=== PATIENT | male | born 1955 | race Caucasian/White ===

== ENCOUNTER 2017-11-04 11:47 | Emergency (ER) | payer OTHER ==
[2017-11-04] MEDS ORDERED: KETOROLAC 30 MG/1 ML SDV IVP ONE (12:07)
[2017-11-04] MEDS ORDERED: METOCLOPRAMIDE 10 MG/2 ML VIAL IVP ONE (12:07)
--- NOTE | 2017-11-04 12:09 | EDPHY ---
H & P Stated Complaint: migraine for 4 days Time Seen by Provider: 11/04/17 11:59 HPI/ROS: CHIEF COMPLAINT: "Cluster headache for 4 days " HISTORY OF PRESENT ILLNESS: 62-year-old male history of cluster headaches, last headache was approximately 15 years ago, complaining of 2 weeks of URI symptoms have become progressively better our 4 days ago started to develop a non thunderclap, progressively worsening right-sided headache with associated nausea, retching, photophobia. No nuchal rigidity. No gait instability. No slurred speech. No trauma. No head or neck manipulation. PRIMARY CARE PROVIDER:Dimitri Crocker REVIEW OF SYSTEMS: A ten point review of systems was performed and is negative with the exception of the items mentioned in the HPI PAST MEDICAL & SURGICAL HISTORY: Cluster headaches SOCIAL HISTORY: Nonsmoker PHYSICAL EXAM (Prior to examination, patient consented to physical exam, hands were washed and my usual and customary physical exam procedures followed) 1) GENERAL: Well-developed, well-nourished, alert and oriented. Appears to be in no acute distress. 2) HEAD: Normocephalic, atraumatic 3) HEENT: Pupils equal, round, reactive to light bilaterally. Sclera anicteric. Nasopharynx, oropharynx, clear, no lesions. Ears bilaterally with normal tympanic membranes. 4) NECK: Full range of motion, no meningeal signs. 5) LUNGS: Clear auscultation bilaterally, no wheezes, no rhonchi, no retractions. 6) HEART: Regular rate and rhythm, no murmur, no heave, no gallop. 7) ABDOMEN: No guarding, no rebound, no focal tenderness, negative McBurney's, negative Avila's, negative Rovsing's, negative peritoneal sign, 8) MUSCULOSKELETAL: Moving all extremities, no focal areas of tenderness, no obvious trauma. No peripheral edema or discoloration. 9) BACK: No CVA tenderness, no midline vertebral tenderness, no fluctuance, no step-off, no obvious trauma, no visual or palpable abnormality. 10) SKIN: No rash, no petechiae. 11) Psychiatric: Patient is oriented X 3, there is no agitation. 12) NEURO: Awake, alert, and oriented to person, place and time. Answers questions appropriately. There were no obvious focal neurologic abnormalities. No cerebellar dysfunction. Cranial nerves 2 through to 12 intact. Normal steady gait. Upper and lower extremities bilaterally with strength 5 / 5, reflexes 2+. DIFFERENTIAL DIAGNOSIS: In no particular order, including but not limited to subarachnoid hemorrhage, migraine headache, tension headache and infectious causes such as meningitis, pharyngitis and sinusitis. The patient understands that this diagnosis is provisional and can never be 100% accurate. Usual and customary warnings were given concerning the clinical impression and all the patient's questions were answered. The patient was instructed to return to the emergency department should her symptoms worsen or return, or develop any new symptoms, otherwise to followup as directed in discharge instructions. This is a partial list of diagnoses considered. These considerations are based on history, physical exam, past history and reassessment. - Personal History Current Tetanus/Diphtheria Vaccine: Yes Current Tetanus Diphtheria and Acellular Pertussis (TDAP): Yes Tetanus Vaccine Date: < 10 years - Medical/Surgical History Hx Asthma: No Hx Chronic Respiratory Disease: No Hx Diabetes: No Hx Cardiac Disease: No Hx Renal Disease: No Hx Cirrhosis: No Hx Alcoholism: No Hx HIV/AIDS: No Hx Splenectomy or Spleen Trauma: No Other PMH: migraines - Social History Smoking Status: Never smoked Constitutional: Initial Vital Signs Temperature (C) 36.9 C 11/04/17 11:52 Heart Rate 84 11/04/17 11:52 Respiratory Rate 18 11/04/17 11:52 Blood Pressure 118/72 11/04/17 11:52 O2 Sat (%) 95 11/04/17 11:52 O2 Delivery Mode Room Air O2 (L/minute) 2 Allergies/Adverse Reactions: No Known Allergies Allergy (Verified 11/04/17 11:51) Home Medications: Medication Instructions Recorded AZITHROMYCIN [Z-PACK] 500 mg PO DAILY #1 packet 11/04/17 Benzonatate [Tessalon Pearles (RX)] 200 mg PO TID PRN #15 cap 11/04/17 IMITREX 11/04/17 Medical Decision Making - Diagnostics Imaging Results: Imaging Impressions Head CT 11/04/17 12:43 Impression: No acute intracranial findings. If symptoms persist and clinical suspicion warrants, consider MRI. Findings discussed with Juana Wade 11/04/2017 at 13:30. Images reviewed by myself ED Course/Re-evaluation: 2:20 p.m.: Patient was re-evaluated with serial exams, most recently at this time. At this time he is sleeping, easily woken, pain-free and his headache. He is complaining of continued cough for the past several nights, request medication for this. He will be given antitussive. Remains with a nonfocal neurologic exam. Plan will be discharge. Do not think that emergent neurologic consultation or hospitalization is indicated. Care of patient under supervision of [primary] supervising physician Dr Pack . I think that subarachnoid hemorrhage, intracranial mass, malignancy, less than likely in this patient at this time. I do not think that the benefits of CT imaging, lumbar puncture, outweigh the risks in this patient. - Data Points Laboratory Results: Laboratory Results 11/04/17 12:20 11/04/17 12:55 11/04/17 11/04/17 11/04/17 12:55 12:20 12:20 WBC 16.68 10^3/uL H 10^3/uL (3.80-9.50) RBC 5.38 10^6/uL 10^6/uL (4.40-6.38) Hgb 16.6 g/dL g/dL (13.7-17.5) Hct 48.5 % % (40.0-51.0) MCV 90.1 fL fL (81.5-99.8) MCH 30.9 pg pg (27.9-34.1) MCHC 34.2 g/dL g/dL (32.4-36.7) RDW 14.0 % % (11.5-15.2) Plt Count 232 10^3/uL 10^3/uL (150-400) MPV 10.4 fL fL (8.7-11.7) Neut % (Auto) 75.6 % H % (39.3-74.2) Lymph % (Auto) 14.0 % L % (15.0-45.0) [place] % (Auto) 9.3 % % (4.5-13.0) Eos % (Auto) 0.1 % L % (0.6-7.6) Baso % (Auto) 0.3 % % (0.3-1.7) Nucleat RBC Rel Count 0.0 % % (0.0-0.2) Absolute Neuts (auto) 12.63 10^3/uL H 10^3/uL (1.70-6.50) Absolute Lymphs (auto) 2.33 10^3/uL 10^3/uL (1.00-3.00) Absolute Monos (auto) 1.55 10^3/uL H 10^3/uL (0.30-0.80) Absolute Eos (auto) 0.01 10^3/uL L 10^3/uL (0.03-0.40) Absolute Basos (auto) 0.05 10^3/uL 10^3/uL (0.02-0.10) Absolute Nucleated RBC 0.00 10^3/uL 10^3/uL (0-0.01) Immature Gran % 0.7 % % (0.0-1.1) Immature Gran # 0.11 10^3/uL H 10^3/uL (0.00-0.10) Sodium 135 mEq/L mEq/L REJ (135-145) Potassium 4.4 mEq/L mEq/L TNP (3.5-5.2) Chloride 103 mEq/L mEq/L TNP (97-110) Carbon Dioxide 21 mEq/l L mEq/l TNP (22-31) Anion Gap 11 mEq/L mEq/L TNP (8-16) BUN 18 mg/dL mg/dL TNP (7-23) Creatinine 1.0 mg/dL mg/dL TNP (0.7-1.3) Estimated GFR > 60 TNP Glucose 106 mg/dL H mg/dL TNP (70-100) Calcium 8.8 mg/dL mg/dL TNP (8.5-10.4) Medications Given: Discontinued Medications Sodium Chloride (Ns) 1,000 mls @ 0 mls/hr IV ONCE ONE PRN Reason: Wide Open Stop: 11/04/17 12:38 Last Admin: 11/04/17 12:40 Dose: 1,000 mls Ketorolac Tromethamine (Toradol) 15 mg IVP EDNOW ONE Stop: 11/04/17 12:08 Last Admin: 11/04/17 12:11 Dose: 15 mg Lorazepam (Ativan Injection) 1 mg IVP EDNOW ONE Stop: 11/04/17 12:38 Last Admin: 11/04/17 12:40 Dose: 1 mg Metoclopramide HCl (Reglan Injection) 10 mg IVP EDNOW ONE Stop: 11/04/17 12:08 Last Admin: 11/04/17 12:11 Dose: 10 mg Departure - Departure Disposition: Home, Routine, Self-Care Clinical Impression: Cough Headache Qualifiers: Headache type: cluster Headache chronicity pattern: episodic headache Intractability: not intractable Qualified Code(s): G44.019 - Episodic cluster headache, not intractable Condition: Good Instructions: Cluster Headache (ED), Acute Cough (ED) Additional Instructions: THANK YOU FOR YOUR VISIT TO OUR EMERGENCY DEPARTMENT (ED). YOU WERE SEEN TODAY BECAUSE OF A HEADACHE. YOU MAY HAVE HAD LAB TESTS, A CT SCAN, MRI OR EVEN A LUMBAR PUNCTURE (COMMONLY REFERRED TO A SPINAL TAP). WE CANNOT ALWAYS FIND THE EXACT CAUSE OF YOUR SYMPTOMS DURING YOUR VISIT TO THE ED. PLEASE FOLLOW UP WITH YOUR DOCTOR WITHIN 24 HOURS TO BE RECHECKED. RETURN TO THE ED IMMEDIATELY IF YOUR HEADACHE WORSENS, IF YOU DEVELOP A FEVER, NECK PAIN OR NECK STIFFNESS, OR IF YOU BECOME CONFUSED OR ABNORMALLY DROWSY. Referrals: Syd Shaikh DO [Medical Doctor] - 5-7 days, call for appt. Prescriptions: AZITHROMYCIN [Z-PACK] 500 mg PO DAILY #1 packet Benzonatate [Tessalon Pearles (RX)] 200 mg PO TID PRN #15 cap PRN Reason: Cough, Moderate
[2017-11-04] MEDS ORDERED: LORazepam 2 MG/ML INJ IVP ONE (12:37)
[2017-11-04] MEDS ORDERED: NS 1,000 ML IV ONE (12:37)
[2017-11-04 12:49] LABS: PLATELET COUNT 232 10^3/uL (150-400)
[2017-11-04 15:08] VITALS: BP 156/101; PULSE 76; RESP 20; O2SAT 93
[2017-11-04 15:16] VITALS: TEMP 98.2
== END 2017-11-04 15:30 | disposition home or self-care (01) ==
DX: G44.019 Episodic cluster headache, not intractable (principal); R05 Cough
CPT/HCPCS: 96374; J1885; J2060; J2765

== ENCOUNTER 2017-12-05 04:59 | Inpatient (IN) | payer OTHER ==
--- NOTE | 2017-12-05 05:07 | EDPHY ---
H & P Stated Complaint: pt woke up from sleep with pain under left arm HPI/ROS: HPI CHIEF COMPLAINT: Left-sided chest discomfort and left axillary pain HISTORY OF PRESENT ILLNESS: This patient is a 62-year-old male, he suffers from cluster headaches, he has recently been on gabapentin brought has stopped it due to side effects. He states approximately 45 min ago or around 430 in the morning he developed discomfort her achiness in the left side of his chest he describes a deep in the left side of his chest almost in his axillary region and left lateral chest. Describes it as a squeezing, achy sensation. Denies recent illness, fever, pleuritic pain, hemoptysis or shortness of breath. This woke him from sleep. He states his rather severe and he decided come the emergency room for evaluation. He drove here by private vehicle. Complains of discomfort in left chest 03/18. Patient denies having ever a stress test or cardiovascular disease or stroke. Past Medical History: Cluster headache Past Surgical History: No recent surgery Social History: Denies drugs alcohol tobacco. Resides in [place]. Family History: Noncontributory ROS REVIEW OF SYSTEMS: A comprehensive 10 point review of systems is otherwise negative aside from elements mentioned in the history of present illness. Exam Constitutional appears nontoxic triage nursing summary reviewed, vital signs reviewed, awake/alert. Eyes normal conjunctivae and sclera, EOMI, PERRLA. HENT normal inspection, atraumatic, moist mucus membranes, no epistaxis, neck supple/ no meningismus, no raccoon eyes. Respiratory clear to auscultation bilaterally, normal breath sounds, no respiratory distress, no wheezing. Cardiovascular no chest wall tenderness on exam, rate normal, regular rhythm, no murmur, no edema, distal pulses normal. Gastrointestinal soft, non-tender, no rebound, no guarding, normal bowel sounds, no distension, no pulsatile mass. Genitourinary no CVA tenderness. Musculoskeletal no midline vertebral tenderness, full range of motion, no calf swelling, no tenderness of extremities, no meningismus, good pulses, neurovascularly intact. Skin no rash, pink, warm, & dry, no rash, skin atraumatic. Neurologic awake, alert and oriented x 3, AAOx3, moves all 4 extremities equally, motor intact, sensory intact, CN II-XII intact, normal cerebellar, normal vision, normal speech. Psychiatric normal mood/affect. Heme/Lymph/Immune no lymphadenopathy. 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 Full-dose aspirin given. Will re-evaluate him. Re-evaluation: EKG interpretation by me on record in [employer] system. Impression time of EKG 5:15 a.m., sinus rhythm rate of 80 right bundle-branch block present and left anterior fascicular block present. However I do not appreciate any acute ischemic change. 0544: This patient was given a dose of nitroglycerin which improved his discomfort in his chest left-sided. It improved it. Is almost gone at this time. ED x-ray chest one view: Negative for acute cardiopulmonary disease. Image interpreted myself 0617: Blood work is reviewed. The patient does have a positive D-dimer. Will proceed with CT angiogram of the chest to make sure the patient does not have a pulmonary embolism. Additionally given that the nitroglycerin x2 doses greatly improved his left- sided chest discomfort the patient need to be admitted for further cardiac evaluation of this chest discomfort. His EKG does not show overt ischemia, his troponin is negative. He has receive full-dose aspirin here in emergency room. Spoke with the hospitalist service Dr. Soto who agrees to admit. CT angiogram of the chest with IV contrast shows no evidence of pulmonary embolism. However it is noted there are 2 liver lesions that need follow-up. Radiology's recommend MRI liver protocol. Liver lesions updated to the hospitalist service. Will need MRI liver protocol. Source: Patient - Personal History Current Tetanus/Diphtheria Vaccine: Yes Current Tetanus Diphtheria and Acellular Pertussis (TDAP): Yes Tetanus Vaccine Date: < 10 years - Medical/Surgical History Hx Asthma: No Hx Chronic Respiratory Disease: No Hx Diabetes: No Hx Cardiac Disease: No Hx Renal Disease: No Hx Cirrhosis: No Hx Alcoholism: No Hx HIV/AIDS: No Hx Splenectomy or Spleen Trauma: No Other PMH: migraines - Social History Smoking Status: Never smoked Constitutional: Initial Vital Signs Temperature (C) 36.8 C 12/05/17 05:01 Heart Rate 88 12/05/17 05:01 Respiratory Rate 18 12/05/17 05:01 Blood Pressure 129/79 H 12/05/17 05:01 O2 Sat (%) 97 12/05/17 05:01 O2 Delivery Mode Room Air Allergies/Adverse Reactions: No Known Allergies Allergy (Verified 12/05/17 05:04) Home Medications: Medication Instructions Recorded [place]als/Supplements -Info Only 1 ea PO DAILY 12/05/17 Ibuprofen [Motrin (*)] 200 mg PO Q4-6PRN PRN 12/05/17 [place]-3 Fatty Acids [Fish Oil 1000 1,000 mg PO DAILY 12/05/17 mg (*)] Medical Decision Making - Diagnostics Imaging Results: Imaging Impressions Abdomen MRI 12/05/17 09:00 Impression: 1. Three rim-enhancing cystic lesions in the right lobe of the liver (two of which appear to communicate). Differential diagnosis includes hepatic abscess ( amoebic versus pyogenic, less likely hydatid cyst) versus less likely necrotic metastasis. 2. No intraabdominal source for suspected abscess. 3. No intraabdominal lymphadenopathy or source for potential malignancy. Comment: I have discussed the case with Dr. John Kim. - Data Points Laboratory Results: Laboratory Results 12/05/17 05:23 12/05/17 05:23 12/05/17 15:15 Troponin I < 0.012 ng/mL ng/mL (0.000-0.034) Medications Given: Acetaminophen (Tylenol) 650 mg PO Q4HRS PRN PRN Reason: Pain, Mild/Fever, Can Take PO Stop: 06/03/18 09:19 Last Admin: 12/05/17 20:58 Dose: 650 mg Hydromorphone HCl (Dilaudid) 0.2 - 0.4 mg IVP Q2 PRN PRN Reason: Pain, Severe Unable to Take PO Stop: 12/15/17 18:24 Last Admin: 12/06/17 00:14 Dose: 0.4 mg Ibuprofen (Motrin) 200 mg PO Q4 PRN PRN Reason: Pain, Mild Stop: 06/03/18 09:21 Last Admin: 12/05/17 12:05 Dose: 200 mg Ondansetron HCl (Zofran) 4 mg IVP Q4HRS PRN PRN Reason: Nausea/Vomiting, Can't Take PO Stop: 06/03/18 09:19 Last Admin: 12/05/17 20:58 Dose: 4 mg Ondansetron HCl (Zofran Odt) 4 mg PO Q4HRS PRN PRN Reason: Nausea/Vomiting, Use 1st Stop: 06/03/18 09:19 Last Admin: 12/05/17 13:36 Dose: 4 mg Oxycodone HCl (Oxycodone Ir) 5 - 10 mg PO Q3 PRN PRN Reason: Pain, Moderate Able to Take PO Stop: 12/15/17 12:32 Last Admin: 12/06/17 00:14 Dose: 10 mg Simethicone (Mylicon) 80 mg PO QID PRN PRN Reason: GAS Stop: 06/03/18 13:32 Last Admin: 12/05/17 20:57 Dose: 80 mg Discontinued Medications Aspirin (Aspirin) 324 mg PO EDNOW ONE Stop: 12/05/17 05:13 Last Admin: 12/05/17 05:20 Dose: 324 mg Hydromorphone HCl (Dilaudid) 0.5 mg IVP EDNOW ONE Stop: 12/05/17 06:03 Last Admin: 12/05/17 06:05 Dose: 0.5 mg Hydromorphone HCl (Dilaudid) 0.5 mg IVP EDNOW ONE Stop: 12/05/17 08:14 Last Admin: 12/05/17 08:15 Dose: 0.5 mg Sodium Chloride (Ns) 1,000 mls @ 0 mls/hr IV EDNOW ONE; Wide Open PRN Reason: Protocol Stop: 12/05/17 05:13 Last Admin: 12/05/17 05:22 Dose: 1,000 mls Sodium Chloride (Ns) 1,000 mls @ 0 mls/hr IV ONCE ONE PRN Reason: Wide Open Stop: 12/05/17 06:15 Last Admin: 12/05/17 06:14 Dose: 1,000 mls Nitroglycerin (Nitrostat) 0.4 mg SL EDNOW ONE Stop: 12/05/17 05:34 Last Admin: 12/05/17 05:36 Dose: 0.4 mg Nitroglycerin (Nitrostat) 0.4 mg SL EDNOW ONE Stop: 12/05/17 05:44 Last Admin: 12/05/17 05:55 Dose: 0.4 mg Ondansetron HCl (Zofran) 4 mg IVP EDNOW ONE Stop: 12/05/17 06:07 Last Admin: 12/05/17 06:09 Dose: 4 mg Departure - Departure Disposition: [facility] Inpatient Acute Clinical Impression: Liver mass Chest pain Qualifiers: Chest pain type: unspecified Qualified Code(s): R07.9 - Chest pain, unspecified Condition: Fair
[2017-12-05] MEDS ORDERED: ASPIRIN 81 MG CHEWABLE TAB PO ONE (05:12)
[2017-12-05] MEDS ORDERED: NS 1,000 ML IV ONE ×2 (05:12→06:14)
--- NOTE | 2017-12-05 05:16 | CPEKG ---
Heart Rate: 80 RR Interval: 750 P-R Interval: 164 QRSD Interval: 132 QT Interval: 388 QTC Interval: 448 P [place]: 75 QRS [place]: -54 T Wave [place]: 21 EKG Severity - ABNORMAL ECG - EKG Impression: SINUS RHYTHM EKG Impression: RBBB AND LAFB Electronically Signed By: Steven Baldwin 05-Dec-2017 06:39:55
[2017-12-05 05:32] LABS: PLATELET COUNT 413 10^3/uL (150-400)
[2017-12-05] MEDS ORDERED: NITROGLYCERIN 0.4 MG BTL SL ONE ×3 (05:33→05:43)
[2017-12-05 05:46] LABS: INR 1.13 (0.83-1.16); PROTIME(PATIENT) 14.7 SEC (12.0-15.0)
[2017-12-05 05:51] LABS: CREATINE KINASE 87 IU/L (0-224)
[2017-12-05] MEDS ORDERED: HYDROmorphONE/DILAUDID 1 MG/ML INJ IVP ONE ×2 (06:02→08:13)
[2017-12-05] MEDS ORDERED: ONDANSETRON 4 MG/2 ML VIAL IVP ONE (06:06)
[2017-12-05] MEDS ORDERED: IOPAMIDOL (ISOVUE 370) 100 ML BTL IV ONE (06:30)
[2017-12-05] MEDS ORDERED: HYDROmorphONE/DILAUDID 1 MG/ML INJ ONE (08:08)
--- NOTE | 2017-12-05 09:31 | CPEKG ---
Heart Rate: 75 RR Interval: 800 P-R Interval: 168 QRSD Interval: 136 QT Interval: 416 QTC Interval: 465 P [place]: 67 QRS [place]: -43 T Wave [place]: 8 EKG Severity - ABNORMAL ECG - EKG Impression: SINUS RHYTHM EKG Impression: RBBB AND LAFB Electronically Signed By: Jus Angulo 05-Dec-2017 11:34:32
--- NOTE | 2017-12-05 09:58 | GHP ---
[f rep st] HISTORY AND PHYSICAL DATE OF ADMISSION: 12/05/2017 HISTORY OF PRESENT ILLNESS: The patient is a pleasant 62-year-old male with a history of cluster hea daches. Presents with chest pain. He had experienced a viral syndrome at the beginning of April with resultant cluster headaches. He had been prescribed Neurontin initially at t.i.d., and then pared d own to b.i.d. He relates a story of alternating chills and rigors followed by drenching night sweats. He attribute s this to Neurontin affect. He has had a change in taste where things taste extra salty or extra swe et. He has lost weight, about 28 pounds. He has had colonoscopies. He does not use injection drugs . He has not noticed any lesions on his skin. He has not had heart failure symptoms such as PND, or thopnea, or lower extremity edema. 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 He does not have exertional ches t pain. He has no rash on his skin. He has not been to the dentist in a couple years, and he does not identi fy troublesome teeth. REVIEW OF SYSTEMS: Complete 10-point review of systems conducted negative except as noted in the HPI . PAST MEDICAL HISTORY: 1. Cluster headaches. 2. Hyperlipidemia. FAMILY HISTORY: Notable for diabetes. SOCIAL HISTORY: He is a nonsmoker. Drinks rare alcohol. 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 His daugh linnette is present at the bedside. FAMILY HISTORY: Daughter present at the bedside and healthy. ALLERGIES: No known drug allergies. MEDICATIONS: Neurontin, which has been recently discontinued; fish oil; ibuprofen. PHYSICAL EXAMINATION: VITAL SIGNS: Temp 36.8, blood pressure 122/70, pulse 76, breathing 16 times a minute, 96% on room air. GENERAL: No acute distress, lying flat. Sclerae anicteric. Oropharynx c lear. Mucous membranes moist. NECK: Supple. No lymphadenopathy or JVD. LUNGS: Clear to ausculta tion bilaterally. HEART: S1, S2. ABDOMEN: Soft, nontender, nondistended. LOWER EXTREMITIES: Wit hout edema. Calves are nontender. SKIN: Without rash. NEUROLOGIC: Nonfocal. LABS: D-dimer is 1.2. INR is 1.1. White count 12.5, hematocrit 40, hemoglobin slightly low at 13.5 , MCV is normal, platelet count is 413. Chem-7 is normal other than glucose 112. LFTs are notable f or normal bilirubin, ALT that is 77, alk phosphatase 129. BNP is 227. Troponin is less than 0.012. Albumin is 3.2, lipase 114. EKG interpreted by me shows sinus at 80 with left axis deviation. He has a right bundle branch block and left anterior fascicular block. No prior for comparison. Chest x-ray interpreted by me shows no acute cardiopulmonary disease. CTA of the chest shows no evid ence of pulmonary embolism. He has 2 separate liver lesions, one 5 cm, one 6 cm. His lung parenchym a is unremarkable. I discussed the case with Dr. Steven Baldwin. Repeat EKG obtained given ongoing chest pain is unchanged. ASSESSMENT/PLAN: 62-year-old gentleman presents with chest pain, recent B symptoms, and liver lesion s. 1. Liver lesions concerning for potential malignancy versus infection. I will draw blood cultures, perform an MRI of the abdomen with and without contrast. Certainly differential includes metastatic cancer from GI source versus primary liver cancer versus a smoldering abscess. Blood cultures have b een drawn. We will follow. Further workup will be dictated by the results of the imaging. 2. Chest pain. He has an abnormal EKG on the basis of conduction system disease. I will perform an echocardiogram, cycle troponins for now. I have not ordered a stress test, but should his workup fo r the liver lesions be unremarkable it would be appropriate to do so. 3. Elevated AST. This is consistent with his known liver lesions. 4. Elevated BNP. Echo is pending. 5. Potential Neurontin allergy. I attribute these symptoms to what is causing his liver lesions as opposed to Neurontin. DISPOSITION: Inpatient status. /[id number]/MODL
[2017-12-05] MEDS ORDERED: GADOBUTROL 10 ML VIAL IVP ONE ×2 (10:47→10:52)
[2017-12-05] MEDS: IBUPROFEN 200 MG TAB PO PRN (12:05)
[2017-12-05] MEDS: oxyCODONE IR 5 MG TAB PO PRN ×3 (12:46→20:58)
[2017-12-05] MEDS: ONDANSETRON DISINTEGRATING 4 MG TAB PO PRN (13:36)
[2017-12-05] MEDS: SIMETHICONE 80 MG TAB CHEW PO PRN ×2 (13:36→20:57)
--- NOTE | 2017-12-05 16:21 | ECHO ---
[email or web address] [address] [address] Main: [phone] Fax: [email or web address] Echocardiogram Name: QUINTON MARTINS MR#: [id number] Study Date: 12/05/2017 Study Time: 01:09 PM Date of : 1955 Age: 62 year(s) Height: 188 cm (74 in.) Weight: 107.96 kg (238 lb.) BSA: 2.34 m2 Gender: Male Examination: Echo Indication: Chest Pain Image Quality: Contrast: Requested by: John Kim BP: 120 mmHg/72 mmHg Heart Rate: Rhythm: Left bundle branch block Indication: Chest Pain Procedure Staff Facer Operator: Talha Parker RDCS Reading Physician: Zheng Thomason MD Requesting Provider: Conclusions: Normal size left ventricle. No LV hypertrophy. Normal global systolic LV function. EF is 77 %. No regional wall motion abnormality. Normal diastolic LV function. Normal RV function. There is no mitral valve regurgitation. Mild tricuspid regurgitation is present. There is no evidence of pulmonary HTN. Measurements: Chambers Valvular Assessment AV/MV Valvular Assessment TV/PV Normal Normal Normal Name Value Range Name Value Range Name Value Range Ao [place] (MM): 3.5 cm (2.2 cm-3.7 MV E Vmax: 0.57 m/s ( - ) TR Vmax: 2.78 mm/s ( - ) cm) MV A Vmax: 0.74 m/s ( - ) TR PGmax: 31 mmHg ( - ) IVSd (2D): 0.9 cm (0.6 cm-1.1 MV E/A: 0.77 ( - ) syst. PAP: 36 mmHg ( - ) cm) LVDd (2D): 5.2 cm (4.2 cm-5.9 cm) LVDs (2D): 2.8 cm (2.1 cm-4 cm) LVPWd (2D): 1.1 cm (0.6 cm-1 cm) LVEF (2D): 77 (>=54 %) RVDd(2D): 4.0 cm (1.9 cm-3.8 cmmm) Continued Measurements: Patient: QUINTON MARTINS Study Date: 12/05/2017 Page 1 of 2 01:09 PM Valvular Assessment AV/MV Valvular Assessment TV/PV Name Value Name Value MV E' Septal: 0.06 m/s CVP (est.): 5 mmHg MV E/E' Septal: 9.40 MV E/E' Lateral: 4.20 Findings: Left Ventricle: Normal size left ventricle. No LV hypertrophy. Normal global systolic LV function. EF is 77 %. No regional wall motion abnormality. Normal diastolic LV function. Right Ventricle: Upper normal size right ventricle. Normal RV function. Right Atrium: The right atrium is normal in size. Mitral Valve: The mitral valve is normal in appearance and function. There is no mitral valve regurgitation. Aortic Valve: The aortic valve is tri-leaflet and functions normally. Tricuspid Valve: The tricuspid valve appears normal. Mild tricuspid regurgitation is present. There is no evidence of pulmonary HTN. Pulmonic Valve: The pulmonic valve is normal in appearance and function. Aorta: The aorta is normal. Pericardium: No pericardial effusion. (No Signature Object) Patient: QUINTON MARTINS Study Date: 12/05/2017 Page 2 of 2 01:09 PM [id number]
[2017-12-05] MEDS: HYDROmorphONE/DILAUDID 2 MG/ML INJ IVP PRN (18:35)
[2017-12-05] MEDS: ACETAMINOPHEN 325 MG TAB PO PRN (20:58)
[2017-12-05] MEDS: ONDANSETRON 4 MG/2 ML VIAL IVP PRN (20:58)
[2017-12-06] MEDS: oxyCODONE IR 5 MG TAB PO PRN ×3 (00:14→16:15)
[2017-12-06] MEDS: HYDROmorphONE/DILAUDID 2 MG/ML INJ IVP PRN ×5 (00:14→11:11)
[2017-12-06] MEDS: PROMETHAZINE HCL 25 MG/ML INJ IVP PRN ×2 (03:37→21:02)
[2017-12-06] MEDS: SIMETHICONE 80 MG TAB CHEW PO PRN (03:43)
[2017-12-06] MEDS: ACETAMINOPHEN 325 MG TAB PO PRN ×2 (04:30→11:02)
[2017-12-06] MEDS: NS 1,000 ML IV SCH ×2 (05:22→17:33)
[2017-12-06 05:26] LABS: PLATELET COUNT 367 10^3/uL (150-400)
[2017-12-06] MEDS: PIPERACILLIN/TAZO 3.375 GM/DEX 50 ML IV SCH ×4 (05:31→23:50)
[2017-12-06 05:33] LABS: INR 1.23 (0.83-1.16); PROTIME(PATIENT) 15.7 SEC (12.0-15.0)
[2017-12-06] MEDS ORDERED: NALOXONE HCL 0.4 MG/ML INJ IVP PRN ×2 (08:43→14:08)
--- NOTE | 2017-12-06 08:49 | HOSPPROG ---
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 febrile overnight; started on abx Objective: Vital Signs Temp Pulse Resp BP Pulse Ox 37.3 C 81 17 105/67 94 12/06/17 08:00 12/06/17 08:00 12/06/17 08:00 12/06/17 08:00 12/06/17 08:00 Laboratory Results 12/06/17 05:15 12/05/17 12/06/17 12/07/17 05:59 05:59 05:59 Intake Total 650 Output Total 300 Balance 350 PT 15.7 SEC (12.0-15.0) H 12/06/17 05:15 INR 1.23 (0.83-1.16) H 12/06/17 05:15 - Physical Exam Constitutional: no apparent distress, appears nourished Eyes: PERRL, anicteric sclera Ears, Nose, Mouth, Throat: moist mucous membranes, hearing normal Cardiovascular: regular rate and rhythym, no murmur, rub, or gallop Respiratory: no respiratory distress, no rales or rhonchi Gastrointestinal: other (ruq tenderness w no rebound) Genitourinary: no bladder fullness, No lindsay in urethra Skin: warm, normal color Musculoskeletal: full muscle strength Neurologic: AAOx3 ICD10 Worksheet Patient Problems: Problems Problem Status Onset Chest pain Acute Liver mass Acute
[2017-12-06] MEDS ORDERED: Herbals/Supplements -Info Only PO SCH (09:00)
[2017-12-06] MEDS: ONDANSETRON 4 MG/2 ML VIAL IVP PRN ×2 (09:44→14:07)
[2017-12-06] MEDS: OMEGA-3 FATTY ACIDS 1,000 MG CAP PO SCH (11:13)
--- NOTE | 2017-12-06 12:29 | GCON ---
[f rep st] CONSULTATION INFECTIOUS DISEASE CONSULTATION DATE OF CONSULTATION: 12/06/2017 REFERRING PHYSICIAN: John Kim MD REASON FOR CONSULTATION: Hepatic abscess. HISTORY OF PRESENT ILLNESS: Patient is a 62-year-old male with a past medical history of cluster hea dache, who I am asked to see in consultation for probable multifocal hepatic abscesses. Patient desc ribes being in his usual state of health until October at which point in time he developed a viral sy ndrome. He describes this as being associated with fever, chills, and nausea. This symptomatology l asted for a few days, then resolved. Beginning approximately 4 weeks ago, the patient experienced on set of recurrent cluster headaches which he had not experience for approximately [address] arted on Neurontin for these symptoms. Thereafter, he describes developing subjective fever, shaking chills, and drenching night sweats requiring him to change his clothes several times per night. The se have persisted over the last 4 weeks. He also notes that he has lost 28 pounds during the same ti me frame. Ultimately, his Neurontin was discontinued as he felt like his symptom complex was associa betsy with use of Neurontin. He did undergo head CT scan in late October without contrast which showed no acute findings. Yesterday, the patient developed left-sided chest pain prompting his evaluation in the emergency department. CT scan of the chest was performed which shows no evidence of pulmonary embolism. Two large hypodense areas within the liver were noted measuring 6 cm. Recommendation for further characterization with abdominal MRI resulted in an MRI of the abdomen being performed which showed findings of 3 rim enhancing cystic lesions in the right lobe of the liver suggestive of hepati c abscess versus less likely necrotic metastasis. Blood cultures were obtained. The patient was feb rile overnight prompting initiation of Zosyn. Today he complains of right upper quadrant pain that i s worse with inspiration. Laboratory assessment has also revealed a leukocytosis. Patient does note that he traveled to [place] in August near [facility]. He goes there every other year. He st ayed for 1 week and does not have any unusual exposures while there. He does not own any pets. He d oes not have any contact with farms or farm animals. 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 He notes that his last colonoscopy was approximately 2 years ago with recommendation for every 10 year studies. No recent dental problems or dental work. Given the above findings, I am now asked to assist in his ongoing management. PAST MEDICAL HISTORY: Cluster headaches. PAST SURGICAL HISTORY: Appendectomy, herniorrhaphy, several knee surgeries. CURRENT MEDICATIONS: Zosyn 3.375 g IV q.6 hours, fish oil 1000 mg p.o. daily, Motrin 200 mg as neede d for mild pain, Oxy IR and Dilaudid as needed for more severe pain. ALLERGIES: No known drug allergies. SOCIAL HISTORY: Patient does not smoke. He rarely drinks alcohol. No drug use. Works as a [employer]. Travel history as outlined above. Only other foreign travel has included [place]. No a nimal contact or farm exposure. FAMILY HISTORY: Diabetes mellitus, diverticulitis. REVIEW OF SYSTEMS: Outside that noted in the HPI, the remainder of a 10 system review is unremarkabl e. PHYSICAL EXAMINATION: VITAL SIGNS: Temperature maximum 39.2, temperature current 37.3, heart rate 8 1, respiratory rate 17, blood pressure 105/67, oxygen saturation 94% on 3 L. GENERAL: Patient is we ll nourished, well developed with fatigued appearance. He appears nontoxic. HEENT: There is no scl eral icterus, conjunctival injection, or conjunctival petechiae. The oropharynx shows dry mucous mem branes. Dentition is in fair repair. There is no nasal discharge. There is no tenderness over the sinuses. NECK: Supple without palpable lymphadenopathy or thyromegaly. CHEST: Clear to auscultati on bilaterally without adventitious sounds. The respiratory effort is normal. CARDIOVASCULAR: Regu lar rate and rhythm without murmurs, gallops, or rubs. ABDOMEN: Mildly tender in the right upper qu adrant. There is mild distention present. Bowel sounds are hypoactive. No palpable organomegaly. MUSCULOSKELETAL: No cyanosis, clubbing, or edema. SKIN: No rashes noted. No stigmata of endocardi tis. The skin is warm and dry to touch. NEUROLOGIC: Patient is alert and interacts appropriately w ith examiner. Cranial nerves 2-12 are grossly intact. Sensation is grossly intact. Muscle tone and bulk are normal. LYMPHATICS: No cervical or supraclavicular nodes palpable. LABORATORY DATA: White blood cell count 15.4, hematocrit 37.8, platelets 367, neutrophils 89%. Seru m creatinine is 0.9, AST 51, ALT 77, bilirubin 1.2, alkaline phosphatase 129, albumin 3.2, lipase 114 . Venous lactate is 0.9. INR is 1.2. Urinalysis shows 1+ protein and 1-3 red blood cells and white blood cells. Blood cultures x2 sets are pending. IMAGING: As outlined in the history of present illness; these were reviewed and interpreted by [facility] today. IMPRESSION: Multifocal hepatic lesions in the setting of leukocytosis and constitutional symptoms: Most likely these represent multifocal hepatic abscess. Suspect these will be of enteric etiology mo st likely. Patient has traveled to [place] which raises consideration of amoebic liver abscess. Imag ing interpretation raised a question of hydatid cyst. The patient does not have risk factors for Ech inococcal disease and suspect this will be unlikely diagnosis. Necrotic metastasis does remain in [facility] differential diagnosis as well. After review with Radiology, the abscesses are felt to be amenable to percutaneous aspiration. RECOMMENDATIONS: 1. CT-guided aspiration of hepatic lesion for further diagnosis including culture and cytology. 2. Continue empiric Zosyn pending further culture data. Ceftriaxone and metronidazole would be othe r consideration although, given recent taste disturbance and ongoing nausea, will hold off on change in regimen currently. 3. Await Gram stain and culture of aspirate for further directed therapy. 4. If culture does not show evidence of bacterial infection, then would proceed with amoebic serolog ies to assess for amoebic liver abscess. 5. Follow up blood cultures as available. Thank you for this consultation. We will continue to follow the patient with you. /[id number]/MODL
[2017-12-06] MEDS: HYDROmorphONE/DILAUDID 6 MG/30 ML PCA IV PRN (12:53)
[2017-12-06] MEDS ORDERED: MIDAZOLAM 2 MG/2 ML VIAL IVP PRN (14:08)
[2017-12-06] MEDS ORDERED: MEPERIDINE 25 MG/ML SYR IVP PRN (14:08)
[2017-12-06] MEDS ORDERED: FLUMAZENIL 0.5 MG/5 ML MDV IVP PRN (14:08)
[2017-12-06] MEDS ORDERED: fentaNYL 100 MCG/2 ML INJ IVP PRN (14:08)
[2017-12-06] MEDS ORDERED: NS 1,000 ML IV SCH (14:15)
--- NOTE | 2017-12-06 14:53 | ASMTCASEMG ---
Living Arrangements What is your living Answers: Alone arrangement? Who do you live with? Type Of Residence What kind of residence do Answers: House you live in? Discharge Plan Comments Coordination Status Comments Notes: Pts case discussed in morning rounds. Pt is a 62 y/o man admitted for chest pain. PT has been ordered and awaiting recommendations. Pt will most likely d/c independent when medically stable. CM available for d/c needs. Plan: Independent Date Signed: 12/06/2017 02:52 PM Electronically Signed By:RAMONE Swanson
--- NOTE | 2017-12-06 16:01 | PDRADPN ---
Radiology Procedure Note Date of Procedure: 12/06/17 Radiologist: Kit Myers Anesthesia: Local (Specify) Pre-op Diagnosis: LIVER ABSCESS Post-op Diagnosis: LIVER ABSCESS Indication: FEVER, LIVER ABSCESS Procedure: CT GUIDED APD LIVER ABSCESS PLACEMENT Inf/Abcess present in the surg proc area at time of surgery?: Yes Depth: Superfical (Skin SQ) Complications: NONE Drains: Other (10 EMIRATI APD DRAIN IN LIVER ABSCESS) Specimen(s): PUS SENT FOR GRAM STAIN AND CX.
[2017-12-07] MEDS: ONDANSETRON 4 MG/2 ML VIAL IVP PRN ×2 (02:50→14:07)
[2017-12-07] MEDS: oxyCODONE IR 5 MG TAB PO PRN ×2 (02:51→19:20)
[2017-12-07] MEDS: ACETAMINOPHEN 325 MG TAB PO PRN (02:51)
[2017-12-07] MEDS: NS 1,000 ML IV SCH ×2 (02:52→14:13)
[2017-12-07] MEDS: PIPERACILLIN/TAZO 3.375 GM/DEX 50 ML IV SCH ×4 (05:38→23:47)
[2017-12-07] MEDS: PROMETHAZINE HCL 25 MG/ML INJ IVP PRN (06:36)
[2017-12-07] MEDS: OMEGA-3 FATTY ACIDS 1,000 MG CAP PO SCH (08:22)
[2017-12-07] MEDS: HYDROmorphONE/DILAUDID 6 MG/30 ML PCA IV PRN (10:48)
--- NOTE | 2017-12-07 13:57 | HOSPPROG ---
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 risk: high dispo: inpatient Subjective: case d/w dr nunez Objective: Vital Signs Temp Pulse Resp BP Pulse Ox 36.6 C 74 16 117/68 97 12/07/17 11:26 12/07/17 09:52 12/07/17 11:26 12/07/17 11:26 12/07/17 11:26 Microbiology 12/06/17 15:30 Mycobacterial Smear (KOFI) - Final Liver - Aspirate 12/06/17 15:30 Gram Stain - Final Liver - Aspirate Laboratory Results 12/06/17 05:15 12/07/17 03:46 12/06/17 12/07/17 12/08/17 05:59 05:59 05:59 Intake Total 650 3144.4 Output Total 300 1238 20 Balance 350 1906.4 -20 PT 15.7 SEC (12.0-15.0) H 12/06/17 05:15 INR 1.23 (0.83-1.16) H 12/06/17 05:15 - Physical Exam Constitutional: no apparent distress, appears nourished, not in pain Eyes: PERRL, anicteric sclera Ears, Nose, Mouth, Throat: moist mucous membranes, hearing normal Cardiovascular: regular rate and rhythym, no murmur, rub, or gallop Respiratory: no respiratory distress, no rales or rhonchi Gastrointestinal: normoactive bowel sounds, soft, non-tender abdomen Genitourinary: no bladder fullness, No lindsay in urethra Skin: warm, normal color Musculoskeletal: full muscle strength Neurologic: AAOx3 ICD10 Worksheet Patient Problems: Problems Problem Status Onset Chest pain Acute Liver mass Acute
[2017-12-07] MEDS: ENOXAPARIN 40 MG/0.4 ML SYR SC SCH (15:07)
--- NOTE | 2017-12-07 19:11 | PCMIDPN ---
Assessment/Plan: Assessment/Plan: * Multifocal hepatic abscess: Cultures no growth to date. If related to microaerophilic streptococci cultures may take more time to show growth. Continue empiric Zosyn. If cultures remain negative, will obtain amoebic serologies and consider change antibiotic therapy to ceftriaxone and metronidazole also would have activity against both bacteria and Entamoeba histolytica. Clinical findings and plan discussed Dr. Kim as well as with patient and family today. 12/07/17 19:08 Subjective: Patient feels somewhat better post drainage of hepatic abscess. Purulent material obtained at time of aspiration. Objective: Vital Signs Temp Pulse Resp BP Pulse Ox 37.2 C 78 12 108/63 94 12/07/17 18:00 12/07/17 18:00 12/07/17 18:00 12/07/17 18:00 12/07/17 18:00 Microbiology 12/06/17 15:30 Gram Stain - Final Liver - Aspirate 12/06/17 15:30 Mycobacterial Smear (KOFI) - Final Liver - Aspirate Laboratory Results 12/06/17 05:15 12/07/17 03:46 12/06/17 12/07/17 12/08/17 05:59 05:59 05:59 Intake Total 650 3144.4 1578 Output Total 300 1238 50 Balance 350 1906.4 1528 Zosyn # 2 Blood cultures x2 no growth Hepatic abscess Gram stain negative, culture no growth to date - Physical Exam General Appearance: alert, no apparent distress EENT: No scleral icterus, No conjunctival petechiae Respiratory: lungs clear, No respiratory distress Cardiac/Chest: regular rate, rhythm Abdomen: tender (Right upper quadrant), other (KRUPA bulb with bilious output) Skin: No rash ICD10 Worksheet Patient Problems: Problems Problem Status Onset Chest pain Acute Liver mass Acute
[2017-12-08] MEDS: oxyCODONE IR 5 MG TAB PO PRN (02:35)
[2017-12-08 04:28] LABS: PLATELET COUNT 344 10^3/uL (150-400)
[2017-12-08] MEDS: PIPERACILLIN/TAZO 3.375 GM/DEX 50 ML IV SCH (06:28)
[2017-12-08] MEDS ORDERED: FLU VACC QS 2017-18 (3YR+)/PF 0.5 ML SYR (FLUARIX QUAD) IM ONE (08:31)
[2017-12-08] MEDS: ENOXAPARIN 40 MG/0.4 ML SYR SC SCH (08:49)
[2017-12-08] MEDS: OMEGA-3 FATTY ACIDS 1,000 MG CAP PO SCH (08:50)
--- NOTE | 2017-12-08 09:48 | PCMIDPN ---
Assessment/Plan: Assessment: Liver abscess right lobe of liver. Unclear etiology. Cultures are still negative so far. Entamoeba histolytica is a possibility. Will send serum antibodies as well as stool antigen test to [facility]. Patient is somewhat improved since drainage. Laboratories are looking significantly better. Discontinue Zosyn and start ceftriaxone and Flagyl. Plan: 1. Discontinue Zosyn. 2. Start ceftriaxone 2 g IV Q 24 hours. 3. Start Flagyl 500 mg IV Q 8 hours. 4. Follow-up laboratory data and cultures. Subjective: Patient is sitting up in his chair in his hospital room. He states that he feels slightly better although still quite symptomatic. No fevers or chills. His headaches have abated slightly. No rash. Objective: Zosyn # 3 Vital Signs Temp Pulse Resp BP Pulse Ox 36.7 C 70 20 123/76 H 97 12/08/17 08:00 12/08/17 08:00 12/08/17 08:00 12/08/17 08:00 12/08/17 08:00 Microbiology 12/06/17 15:30 Gram Stain - Final Liver - Aspirate 12/06/17 15:30 Mycobacterial Smear (KOFI) - Final Liver - Aspirate Laboratory Results 12/08/17 03:39 12/08/17 03:39 12/07/17 12/08/17 12/09/17 05:59 05:59 05:59 Intake Total 3144.4 2728 1200 Output Total 1238 1100 Balance 1906.4 1628 1200 - Physical Exam General Appearance: WD/WN, alert, no apparent distress, toxic (Mildly) Respiratory: lungs clear, No normal breath sounds (Decreased breath sounds in the bases secondary to pain right upper quadrant) Cardiac/Chest: regular rate, rhythm, No tachycardia Abdomen: soft, distended, No non-tender, No mass Skin: normal color, warm/dry, No rash Neuro/Psych: alert, normal mood/affect, oriented x 3 ICD10 Worksheet Patient Problems: Problems Problem Status Onset Chest pain Acute Liver mass Acute
--- NOTE | 2017-12-08 09:56 | HOSPPROG ---
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 IS risk: high dispo: inpatient Subjective: case d/w dr gonzalez Objective: Vital Signs Temp Pulse Resp BP Pulse Ox 36.7 C 70 20 123/76 H 97 12/08/17 08:00 12/08/17 08:00 12/08/17 08:00 12/08/17 08:00 12/08/17 08:00 Microbiology 12/06/17 15:30 Gram Stain - Final Liver - Aspirate 12/06/17 15:30 Mycobacterial Smear (KOFI) - Final Liver - Aspirate Laboratory Results 12/08/17 03:39 12/08/17 03:39 12/07/17 12/08/17 12/09/17 05:59 05:59 05:59 Intake Total 3144.4 2728 1200 Output Total 1238 1100 Balance 1906.4 1628 1200 PT 15.7 SEC (12.0-15.0) H 12/06/17 05:15 INR 1.23 (0.83-1.16) H 12/06/17 05:15 - Physical Exam Constitutional: no apparent distress, appears nourished Eyes: PERRL, anicteric sclera Ears, Nose, Mouth, Throat: moist mucous membranes, hearing normal Cardiovascular: regular rate and rhythym, no murmur, rub, or gallop Respiratory: no respiratory distress, no rales or rhonchi Gastrointestinal: normoactive bowel sounds, garcia's sign Genitourinary: No lindsay in urethra Skin: warm, normal color Musculoskeletal: full muscle strength Neurologic: AAOx3 ICD10 Worksheet Patient Problems: Problems Problem Status Onset Chest pain Acute Liver mass Acute
[2017-12-08] MEDS: POLYETHYLENE GLYCOL 3350 17 GM PKT PO SCH ×2 (11:57→21:33)
[2017-12-08] MEDS: cefTRIAXone 2 GM in STERILE WATER INJ 20 ML IV SCH (13:19)
--- NOTE | 2017-12-08 13:42 | ASMTCMCOM ---
CM Note CM Note Notes: Pts case discussed in morning rounds. Therapies are recommending SNF. Pt would like to d/c with HC. Pt has selected [facility]. Referral sent. [facility] is able to accept. CM returned a call to [place] (P#: [phone]) through [employer] and provided d/c updates. CM to follow. Plan: IRENE, PT, RN, OT Date Signed: 12/08/2017 01:41 PM Electronically Signed By:RAMONE Swanson
[2017-12-08] MEDS: HYDROmorphONE/DILAUDID 6 MG/30 ML PCA IV PRN (14:51)
[2017-12-08] MEDS: ENOXAPARIN 100 MG/ML SYR SC SCH (19:01)
[2017-12-08] MEDS ORDERED: CANN-EASE 2 GM TUBE TP PRN (22:24)
[2017-12-09] MEDS: ENOXAPARIN 100 MG/ML SYR SC SCH ×2 (05:37→18:11)
[2017-12-09] MEDS: POLYETHYLENE GLYCOL 3350 17 GM PKT PO SCH ×2 (09:08→21:52)
[2017-12-09] MEDS: OMEGA-3 FATTY ACIDS 1,000 MG CAP PO SCH (09:08)
[2017-12-09] MEDS: cefTRIAXone 2 GM in STERILE WATER INJ 20 ML IV SCH (09:09)
[2017-12-09] MEDS: ONDANSETRON DISINTEGRATING 4 MG TAB PO PRN ×2 (09:30→14:41)
[2017-12-09] MEDS: HYDROmorphONE/DILAUDID 6 MG/30 ML PCA IV PRN (09:52)
[2017-12-09] MEDS: oxyCODONE IR 5 MG TAB PO PRN (12:49)
--- NOTE | 2017-12-09 14:21 | HOSPPROG ---
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 Signs Temp Pulse Resp BP Pulse Ox 36.6 C 76 19 118/67 95 12/09/17 13:40 12/09/17 13:40 12/09/17 13:40 12/09/17 13:40 12/09/17 13:40 Microbiology 12/06/17 15:30 Gram Stain - Final Liver - Aspirate Laboratory Results 12/08/17 03:39 12/08/17 03:39 12/08/17 12/09/17 12/10/17 05:59 05:59 05:59 Intake Total 2728 3416 Output Total 1100 1530 100 Balance 1628 1886 -100 PT 15.7 SEC (12.0-15.0) H 12/06/17 05:15 INR 1.23 (0.83-1.16) H 12/06/17 05:15 - Physical Exam Constitutional: no apparent distress, appears nourished, not in pain Cardiovascular: regular rate and rhythym, no murmur, rub, or gallop Respiratory: no respiratory distress, no rales or rhonchi, clear to auscultation Gastrointestinal: normoactive bowel sounds, soft, non-tender abdomen, no palpable masses Skin: no rashes or abrasions, no fluctuance, no induration Neurologic: AAOx3, sensation intact bilaterally Psychiatric: interacting appropriately, not anxious, not encephalopathic, thought process linear ICD10 Worksheet Patient Problems: Problems Problem Status Onset Chest pain Acute Liver mass Acute
--- NOTE | 2017-12-09 14:39 | PCMIDPN ---
Assessment/Plan: Assessment/Plan: 1. 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 two may be communicating -Was on zosyn, now on ceftriaxone + flagyl -He will likely benefit with f/u imaging sometime next week to ensure other collection are draining. If not, then consideration to see if amenable for drainage as this would fascilitate his response to treatment -peripheral IV tenuous. will likely need prolonged course of antibiotics (4-8 weeks (all iv vs IV plus oral) - will place picc line -reviewed cultures with patient -will add CRP to labs. follow LFT -care coordinated with Rn. Lisa ceftraixone 2g daily-12/08/17 flagyl 500mg q8- 12/08/17 s/p zosyn 12/06/17- 12/08/17 Subjective: afebrile. patient still very weak. he is having a difficult time taking in food/ drinks due to taste sensitivities. he hasn't moved bowels in several day. drain in place. Objective: Vital Signs Temp Pulse Resp BP Pulse Ox 36.6 C 76 19 118/67 95 12/09/17 13:40 12/09/17 13:40 12/09/17 13:40 12/09/17 13:40 12/09/17 13:40 Microbiology 12/06/17 15:30 Gram Stain - Final Liver - Aspirate Laboratory Results 12/08/17 03:39 12/08/17 03:39 12/08/17 12/09/17 12/10/17 05:59 05:59 05:59 Intake Total 2728 3416 Output Total 1100 1530 100 Balance 1628 1886 -100 - Physical Exam General Appearance: alert, no apparent distress Respiratory: lungs clear Cardiac/Chest: regular rate, rhythm Extremities: No swelling Abdomen: soft, distended, other (meir drain noted. brownish material noted, thin) Skin: No erythema - Time Spent With Patient Time Spent with Patient: greater than 35 minutes Time Spent with Patient: Greater than 35 minutes spent on this patients care, greater than 50% of time spent counseling, educating, and coordinating care regarding the above mentioned plan. ICD10 Worksheet Patient Problems: Problems Problem Status Onset Chest pain Acute Liver mass Acute
[2017-12-09] MEDS: PROMETHAZINE HCL 25 MG/ML INJ IVP PRN (18:11)
--- NOTE | 2017-12-09 19:56 | HOSPPROG ---
Hospitalist Progress Note Assessment/Plan: RN notified earlier about nausea refractory to Zofran. Recommend that pt try promethazine. Not increasing Zofran dose/frequency or adding Reglan bc of risk of QT prolongation. Objective: Vital Signs Temp Pulse Resp BP Pulse Ox 36.5 C 64 16 112/67 95 12/09/17 19:49 12/09/17 19:49 12/09/17 19:49 12/09/17 19:49 12/09/17 19:49 Microbiology 12/06/17 15:30 Gram Stain - Final Liver - Aspirate Laboratory Results 12/08/17 03:39 12/08/17 03:39 12/08/17 12/09/17 12/10/17 05:59 05:59 05:59 Intake Total 2728 3416 440 Output Total 1100 1530 370 Balance 1628 1886 70 PT 15.7 SEC (12.0-15.0) H 12/06/17 05:15 INR 1.23 (0.83-1.16) H 12/06/17 05:15 ICD10 Worksheet Patient Problems: Problems Problem Status Onset Chest pain Acute Liver mass Acute
[2017-12-10] MEDS: oxyCODONE IR 5 MG TAB PO PRN ×3 (04:13→21:06)
[2017-12-10 04:31] LABS: PLATELET COUNT 387 10^3/uL (150-400)
[2017-12-10] MEDS: ENOXAPARIN 100 MG/ML SYR SC SCH ×2 (05:25→18:29)
[2017-12-10] MEDS: ONDANSETRON 4 MG/2 ML VIAL IVP PRN ×2 (05:25→16:28)
[2017-12-10] MEDS: HYDROmorphONE/DILAUDID 6 MG/30 ML PCA IV PRN (08:39)
[2017-12-10] MEDS: cefTRIAXone 2 GM in STERILE WATER INJ 20 ML IV SCH (08:43)
[2017-12-10] MEDS: POLYETHYLENE GLYCOL 3350 17 GM PKT PO SCH (11:56)
[2017-12-10] MEDS ORDERED: BISACODYL 10 MG SUPP PR PRN (12:16)
[2017-12-10] MEDS ORDERED: MAGNESIUM HYDROXIDE 30 ML UDCUP PO PRN (12:16)
[2017-12-10] MEDS ORDERED: LACTULOSE 20 GM/30 ML UDCUP PO PRN (12:16)
[2017-12-10] MEDS ORDERED: POLYETHYLENE GLYCOL 3350 17 GM PKT PO PRN (12:16)
--- NOTE | 2017-12-10 12:33 | PCMIDPN ---
Assessment/Plan: Assessment/Plan: 1. 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 two may be communicating -Was on zosyn, now on ceftriaxone + flagyl -He will likely benefit with f/u imaging sometime next week to ensure other collection are draining. If not, then consideration to see if amenable for drainage as this would fascilitate his response to treatment - peripheral iv tenuous, will place picc line -will add CRP to labs. -plan of care reviewed with patient 2. Acute right knee pain - check xray . if appreciable joint effusion then recommend aspirating to further evaluate (cell count, cultures, crystals etc). Meds ceftraixone 2g daily-12/08/17 flagyl 500mg q8- 12/08/17 s/p zosyn 12/06/17- 12/08/17 Subjective: afebrile. still doesn't feel well. weak. not eating much. sleep hasn't been great. not moving bowels. passed gas today and felt better. acute right knee pain today. pain with extension. warm Objective: Vital Signs Temp Pulse Resp BP Pulse Ox 36.6 C 67 16 114/61 94 12/10/17 08:00 12/10/17 08:00 12/10/17 08:00 12/10/17 08:00 12/10/17 08:00 Microbiology 12/06/17 15:30 Gram Stain - Final Liver - Aspirate Laboratory Results 12/10/17 03:56 12/10/17 03:56 12/09/17 12/10/17 12/11/17 05:59 05:59 05:59 Intake Total 3416 760 Output Total 1530 840 Balance 1886 -80 - Physical Exam General Appearance: alert, no apparent distress Respiratory: lungs clear Cardiac/Chest: regular rate, rhythm Extremities: swelling (difficult to exam knee as patient has it flexed and resisting to extend it. possible swelling. warm/hot to touch. no erythema. ) Abdomen: normal bowel sounds, soft, other (tenderness ruq. drain noted.), No distended Skin: No erythema ICD10 Worksheet Patient Problems: Problems Problem Status Onset Chest pain Acute Liver mass Acute
[2017-12-10] MEDS ORDERED: ALTEPLASE 2 MG VIAL IVP PRN (12:39)
[2017-12-10] MEDS ORDERED: HYDROmorphone HCL/NS 0.5 MG/ML SYR IVP PRN (12:45)
[2017-12-10] MEDS: IBUPROFEN 200 MG TAB PO PRN (13:33)
[2017-12-10] MEDS ORDERED: KETOROLAC 30 MG/1 ML SDV IVP ONE (14:24)
--- NOTE | 2017-12-10 14:32 | HOSPPROG ---
Hospitalist Progress Note Assessment/Plan: * Liver abscess s/p IR drain -IV ceftriaxone, IV flagyl -repeat CT abd/pelvis this week * DVT -SQ Lovenox -transition to oral agent when sure no further procedures needed * Acute right knee pain, s/p previous reconstruction -consult ortho - d/w Kelly Casper for Dr eWlsh -check Xray * Nausea - possible ileus -attempting abd Xray, but able to stand due to knee pain -add IV reglan * Cluster headaches Subjective: Acute onset severe right knee pain. Poor PO, minimal BM, can't tolerate Miralax. large flatus this am. 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 - Physical Exam Constitutional: no apparent distress, appears nourished, not in pain Cardiovascular: regular rate and rhythym, no murmur, rub, or gallop Respiratory: no respiratory distress, no rales or rhonchi, clear to auscultation Gastrointestinal: normoactive bowel sounds, soft, non-tender abdomen, no palpable masses Skin: no rashes or abrasions, no fluctuance, no induration Neurologic: AAOx3, sensation intact bilaterally Psychiatric: interacting appropriately, not anxious, not encephalopathic, thought process linear ICD10 Worksheet Patient Problems: Problems Problem Status Onset Chest pain Acute Liver mass Acute
[2017-12-10] MEDS: SIMETHICONE 80 MG TAB CHEW PO PRN (16:27)
--- NOTE | 2017-12-10 16:31 | PDCONSULT ---
Analysis Evaluator Note: Landry is a pleasant 62 year old male who presented to the hospital with abdominal pain. He was found to have a liver abscess. This morning he began complaining of right knee pain. He reports he has had multiple procedures in this knee in the past and has had similar symptoms of increased pain and locking which usually resolves on its own. He was also found to have a DVT in his RLE and is currently being treated with Lovenox. He was given Toradol earlier this afternoon and the knee pain has gotten significantly better. He reports he is now able to bear weight and bend and straighten the knee with only mild pain PE: Patient is standing when we entered the room. Patient has large well healed incisions on the medial and lateral aspects of his knee. No erythema or warmth. Patient is able to extend and flex the knee with only mild pain. Plan: Patient is currently with s/s c/w right knee arthritis. He has had similar symptoms in the past which have always resolved on there own with time. Patient has had a significant decrease in pain since a dose of Toradol this afternoon. He has had We would not recommend aspiration at this time. Patient would like to defer the knee x-ray due to his significant decrease in pain. We will continue observation at this point.
[2017-12-10] MEDS: METOCLOPRAMIDE 10 MG/2 ML VIAL IVP SCH (18:29)
[2017-12-10] MEDS: KETOROLAC 30 MG/1 ML SDV IVP PRN (21:06)
[2017-12-10] MEDS: SENNOSIDES/DOCUSATE SODIUM TAB PO SCH (21:07)
[2017-12-11] MEDS: METOCLOPRAMIDE 10 MG/2 ML VIAL IVP SCH ×4 (01:00→17:30)
--- NOTE | 2017-12-11 01:38 | GCON ---
[f rep st] CONSULTATION Patient Name: QUINTON MARTINS N-Number: [id number] Date of : 1955 Patient Status: Inpatient Attending Doctor: Serene Soto MD Consulting Doctor: Hardy Sullivan MD Date of service: 12/10/17 CPT codes: CPT code 73290 ER visit requiring admission or initial inpatient visit, level three CHIEF COMPLAINT: Right knee pain HISTORY OF PRESENT ILLNESS: This is a very pleasant 62 year old male who was recently admitted to the hospitalist service due to the development of a liver abscess. He was also found to have a right lower extremity DVT and was subsequently started on a course of Lovenox. Earlier today he noticed increased pain in his right knee. He has had multiple right knee surgeries in the past and has had multiple instances of increased pain and locking. He was given a dose of Torradol earlier this afternoon and is now able to bear weight and ambulate with mild pain. PROBLEM LIST: Liver abscess, RLE DVT, right knee pain, ileus, cluster headaches PAST MEDICAL HISTORY: Cluster headaches, hyperlipidemia SURGERIES: Multiple prior knee surgeries SOCIAL HISTORY: Non-contributory FAMILY HISTORY: Notable for diabetes CURRENT MEDICATIONS: Neurontin, fish oil, ibuprofen ALLERGIES: NKDA REVIEW OF SYSTEMS Constitutional: No unexpected weight loss, weight gain, fevers, chills, or fatigue. Eyes: No blurred or double vision, no eye pain, redness or swelling. ENT: No headaches, difficulty swallowing, nose bleeds, tinnitus, or earaches. Cardiovascular: No chest pain, palpitations, fainting or murmurs. Respiratory: No shortness of breath, wheezing, cough, of difficulty breathing. GI: No reflux, no nausea or vomiting, no constipation, diarrhea, or bloody stools. Genitourinary: No urinary frequency or urgency, no pain with urination. Skin: No skin changes, rashes, itching, or redness. Neurologic: No unsteadiness of gait, no dizziness, tremors, or seizures. Psychiatric: No nervousness, anxiety, depression, or hallucinations. Hematologic: No increased bleeding or easy bruising. Endocrine: No excessive thirst or urination and no heat or cold intolerances. Allergic: No reactions to food or environment. Musculoskeletal: See history of present illness. PHYSICAL EXAM General: No apparent distress. Orientation: Alert and oriented times three Mood and affect: Calm, appropriate. Gait and station: Normal gait and station. Skin: Warm, dry. Lymph: Non tender neck, axillary and inguinal nodes. Chest: Equal expansion, no pain with deep breaths, speaks in coherent sentences. Cardiovascular: Regular pulse. Abdomen: Soft, non-tender, no masses, no palpable hernias. Bilateral knee examination Inspection/palpation: Right: Well healed medial and lateral incisions from prior surgeries. Mild effusion. No erythema or warmth present. No pain with passive flexion/extension of the knee Left: Soft, non-tender. Range of motion Extension-Flexion: 5-120 / 0-150 / 0-150 Strength (R / L / Normal) Muscle(s) Quadriceps (L3-L4): 5 / 5 / 5 Hamstrings (L4-L5): 5 / 5 / 5 Tibialis anterior (L4): 5 / 5 / 5 EHL (L5): 5 / 5 / 5 FHL (S1): 5 / 5 / 5 Gastroc-soleus (S1): 5 / 5 / 5 Sensory (R / L / Normal) Dermatomes L1 (groin): + / + / + L2 (medial upper thigh): + / + / + L3 (anterior thigh): + / + / + L4 (medial ankle): + / + / + L5 (first dorsal web space): + / + / + S1 (lateral border of foot): + / + / + Peripheral nerves Superficial peroneal: + / + / + Deep peroneal: + / + / + Sural: + / + / + Tibial: + / + / + Saphenous: + / + / + Vascular exam (R / L / Normal) Dorsalis pedis: 2+ / 2+ / 2+ Tibialis posterior: 2+ / 2+ / 2+ Diagnoses New diagnosis: Right knee post traumatic arthritic flair Work-up planned: yes: see assessment and plan Assessment and plan This is a 62 year old male with acute on chronic right knee s/s c/w post- traumatic arthritis -Do not recommend aspiration at this point due to low clinical suspicion for infection -Recommend a course of oral anti-inflammatories -WBAT on RLE -Follow-up as needed as an outpatient Time I have spent 80 minutes of [id number] time with the patient during this visit. Over fifty percent of this time was spent counseling the patient on the risks, benefits, alternatives, and complications of both non-operative and operative forms of treatment as outlined above. /[id number]/MODL MTDD
[2017-12-11 02:56] LABS: HIV TYPE 1 AND 2 NEGATIVE (NEGATIVE)
[2017-12-11] MEDS: oxyCODONE IR 5 MG TAB PO PRN ×4 (03:09→18:14)
[2017-12-11 04:09] LABS: PLATELET COUNT 385 10^3/uL (150-400)
[2017-12-11] MEDS: ENOXAPARIN 100 MG/ML SYR SC SCH ×2 (06:22→20:32)
[2017-12-11] MEDS: cefTRIAXone 2 GM in STERILE WATER INJ 20 ML IV SCH (08:20)
[2017-12-11] MEDS: KETOROLAC 30 MG/1 ML SDV IVP PRN ×2 (08:20→17:31)
[2017-12-11] MEDS ORDERED: LORazepam 2 MG/ML INJ IVP PRN (10:09)
--- NOTE | 2017-12-11 10:24 | HOSPPROG ---
Hospitalist Progress Note Assessment/Plan: * Liver abscess s/p IR drain -IV ceftriaxone, IV flagyl -repeat CT abd/pelvis today * DVT -SQ Lovenox -transition to oral agent when sure no further procedures needed * Acute right knee pain, s/p previous reconstruction - post traumatic arthritis -NSAIDS prn * Ileus -improved on Reglan * ESR 97 -suggest liver abscess present for some time -rule out malignancy * Cluster headaches Subjective: Knee pain is better. Good BM this am Objective: Vital Signs Temp Pulse Resp BP Pulse Ox 36.8 C 71 18 127/71 H 91 L 12/11/17 08:00 12/11/17 08:00 12/11/17 08:00 12/11/17 08:00 12/11/17 08:00 Microbiology 12/06/17 15:30 Gram Stain - Final Liver - Aspirate Laboratory Results 12/11/17 03:44 12/11/17 03:44 12/10/17 12/11/17 12/12/17 05:59 05:59 05:59 Intake Total 760 523.6 450 Output Total 840 135 350 Balance -80 388.6 100 PT 15.7 SEC (12.0-15.0) H 12/06/17 05:15 INR 1.23 (0.83-1.16) H 12/06/17 05:15 case d/w Dr. Sullivan - knee pain does not need further imaging, no tap recommended, NSAID therapy - Physical Exam Constitutional: no apparent distress, appears nourished, not in pain Cardiovascular: regular rate and rhythym, no murmur, rub, or gallop Respiratory: no respiratory distress, no rales or rhonchi, clear to auscultation Gastrointestinal: normoactive bowel sounds, soft, non-tender abdomen, no palpable masses Skin: no rashes or abrasions, no fluctuance, no induration Neurologic: AAOx3, sensation intact bilaterally Psychiatric: interacting appropriately, not anxious, not encephalopathic, thought process linear ICD10 Worksheet Patient Problems: Problems Problem Status Onset Chest pain Acute Liver mass Acute
[2017-12-11] MEDS: SENNOSIDES/DOCUSATE SODIUM TAB PO SCH (11:45)
[2017-12-11] MEDS: traMADol 50 MG TAB PO PRN (13:30)
--- NOTE | 2017-12-11 13:38 | PCMIDPN ---
Assessment/Plan: Assessment/Plan: * Multifocal hepatic abscess: Cultures with growth of Fusobacterium and Parvimonas - will change ceftriaxone and Flagyl to Unasyn as there are rare reports of metronidazole resistance in Parvimonas. Plans for repeat CT scan today to further define status of hepatic abscesses; this will help define if additional drainage required and status of current drain which continues to have output of purulent appearing material. 12/11/17 13:35 Subjective: Patient with residual right upper quadrant pain. No further fever. Poor appetite and taste disturbance persist. Objective: Vital Signs Temp Pulse Resp BP Pulse Ox 36.7 C 62 18 119/73 98 12/11/17 12:28 12/11/17 12:28 12/11/17 12:28 12/11/17 12:28 12/11/17 12:28 Microbiology 12/06/17 15:30 Gram Stain - Final Liver - Aspirate Laboratory Results 12/11/17 03:44 12/11/17 03:44 12/10/17 12/11/17 12/12/17 05:59 05:59 05:59 Intake Total 760 523.6 450 Output Total 840 135 350 Balance -80 388.6 100 ESR 97 MM/HR (0-20) H 12/11/17 03:44 C-Reactive Protein 174.0 mg/L (<10.0) H 12/10/17 04:00 Ceftriaxone # 3 Metronidazole # 3 Antibiotics # 6 Abscess cultures with growth of Fusobacterium and Parvimonas - Physical Exam General Appearance: alert, no apparent distress EENT: No scleral icterus, No thrush Respiratory: lungs clear, No respiratory distress Cardiac/Chest: regular rate, rhythm Abdomen: tender (Mild in right upper quadrant), other (KRUPA bulb with purulent output) ICD10 Worksheet Patient Problems: Problems Problem Status Onset Chest pain Acute Liver mass Acute
[2017-12-11] MEDS ORDERED: LIDOCAINE 1% 300 MG/30 ML SDV ONE (14:46)
--- NOTE | 2017-12-11 17:14 | ASMTCMCOM ---
CM Note CM Note Notes: Discussed pt case in rounds this AM. Attempted too meet w/pt at end of day but he was sleeping. DC plan has been to dc home w/[facility], although PT still recommending SNF. Not determined yet if pt will need LT IV ABX's but did give referral to [employer] to run benefits. Pt will have abd CT to assess liver abcesses. Pt also having knee pain. CM will meet w/pt tomorrow to discuss dc poc options. Date Signed: 12/11/2017 05:14 PM Electronically Signed By:Yamileth Andrea RN
[2017-12-11] MEDS: AMPICILLIN/SULBACTAM 3 GM in STERILE WATER INJ 8 ML IV SCH (17:29)
[2017-12-11] MEDS ORDERED: AMPICILLIN/SULBACTAM 3 GM in NS 100 ML IV SCH (18:00)
[2017-12-12] MEDS: oxyCODONE IR 5 MG TAB PO PRN ×2 (00:06→05:50)
[2017-12-12] MEDS: METOCLOPRAMIDE 10 MG/2 ML VIAL IVP SCH ×3 (00:07→14:47)
[2017-12-12] MEDS: KETOROLAC 30 MG/1 ML SDV IVP PRN ×2 (00:08→07:58)
[2017-12-12] MEDS: AMPICILLIN/SULBACTAM 3 GM in STERILE WATER INJ 8 ML IV SCH ×5 (00:09→23:55)
[2017-12-12] MEDS: SENNOSIDES/DOCUSATE SODIUM TAB PO SCH ×3 (04:38→20:15)
[2017-12-12] MEDS: ENOXAPARIN 100 MG/ML SYR SC SCH ×2 (05:47→20:15)
[2017-12-12 06:16] LABS: PLATELET COUNT 375 10^3/uL (150-400)
--- NOTE | 2017-12-12 09:25 | PCMIDPN ---
Assessment/Plan: Assessment/Plan: 1. 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 two may be communicating -Cx with Fusobacterium and Parvimonas -Now on Unasyn -For f/u CT a/p today to reevaluate abscess cavities, adequacy of drainage, and whether additional drains necessary or amenable (if needed) - picc line -follow labs periodically while on therapy. -plan of care reviewed with patient Meds unasyn 3g q6- 12/11/17 s/p -zosyn 12/06/17- 12/08/17 -ceftraixone 2g daily-12/08/17-12/11/17 -flagyl 500mg q8- 12/08/17-12/11/17 Subjective: Afebrile. feeling better today compared to Monday. less pain involving his knee , and ROM has improved. appetite still down, and altered taste. Denies sob. walking hallways. Objective: Vital Signs Temp Pulse Resp BP Pulse Ox 36.8 C 65 18 123/70 H 96 12/12/17 08:00 12/12/17 08:00 12/12/17 08:00 12/12/17 08:00 12/12/17 08:00 Microbiology 12/06/17 15:30 Gram Stain - Final Liver - Aspirate Laboratory Results 12/12/17 05:55 12/12/17 05:55 12/11/17 12/12/17 12/13/17 05:59 05:59 05:59 Intake Total 523.6 680 Output Total 135 1100 Balance 388.6 -420 ESR 97 MM/HR (0-20) H 12/11/17 03:44 C-Reactive Protein 174.0 mg/L (<10.0) H 12/10/17 04:00 - Physical Exam General Appearance: alert, no apparent distress Respiratory: lungs clear Cardiac/Chest: regular rate, rhythm Extremities: No swelling Abdomen: normal bowel sounds, non-tender, soft, distended, other (meir drain noted with serous drainage with some debri) Skin: No erythema ICD10 Worksheet Patient Problems: Problems Problem Status Onset Chest pain Acute Liver mass Acute
[2017-12-12] MEDS ORDERED: IOPAMIDOL (ISOVUE-300) 100 ML BTL ONE ×2 (10:37→10:38)
[2017-12-12] MEDS ORDERED: METOCLOPRAMIDE 10 MG/2 ML VIAL IVP PRN (12:30)
--- NOTE | 2017-12-12 18:13 | HOSPPROG ---
Hospitalist Progress Note Assessment/Plan: * Liver abscess s/p IR drain (polymicrobial bowel gwen, parasite negative) -IV Unasyn -may need another drain in 2nd abscess * DVT -SQ Lovenox -transition to oral agent when sure no further procedures needed * Acute right knee pain, s/p previous reconstruction - post traumatic arthritis -NSAIDS prn * Ileus -improved on Reglan * Cluster headaches - resolved Subjective: No new complaints. Objective: Vital Signs Temp Pulse Resp BP Pulse Ox 36.6 C 74 18 119/72 95 12/12/17 16:00 12/12/17 16:10 12/12/17 16:00 12/12/17 16:00 12/12/17 16:00 Microbiology 12/06/17 15:30 Gram Stain - Final Liver - Aspirate 12/06/17 15:30 Mycobacterial Smear (KOFI) - Final Liver - Aspirate Laboratory Results 12/12/17 05:55 12/12/17 05:55 12/11/17 12/12/17 12/13/17 05:59 05:59 05:59 Intake Total 523.6 680 216 Output Total 135 1100 Balance 388.6 -420 216 PT 15.7 SEC (12.0-15.0) H 12/06/17 05:15 INR 1.23 (0.83-1.16) H 12/06/17 05:15 Using IV dilaudid for pain CT abd - 2nd abscess still undrained - Physical Exam Constitutional: no apparent distress, appears nourished, not in pain Cardiovascular: regular rate and rhythym, no murmur, rub, or gallop Respiratory: no respiratory distress, no rales or rhonchi, clear to auscultation Gastrointestinal: normoactive bowel sounds, soft, non-tender abdomen, no palpable masses Skin: no rashes or abrasions, no fluctuance, no induration Neurologic: AAOx3, sensation intact bilaterally Psychiatric: interacting appropriately, not anxious, not encephalopathic, thought process linear ICD10 Worksheet Patient Problems: Problems Problem Status Onset Chest pain Acute Liver mass Acute
[2017-12-12] MEDS: traMADol 50 MG TAB PO PRN (23:53)
[2017-12-12] MEDS: KETOROLAC 15 MG/1 ML SDV IVP PRN (23:54)
[2017-12-13] MEDS ORDERED: HYDROmorphONE/DILAUDID 2 MG/ML INJ IVP PRN (00:27)
--- NOTE | 2017-12-13 00:58 | CPEKG ---
Heart Rate: 78 RR Interval: 769 P-R Interval: 172 QRSD Interval: 150 QT Interval: 412 QTC Interval: 470 P [place]: 53 QRS [place]: -53 T Wave [place]: 10 EKG Severity - ABNORMAL ECG - EKG Impression: SINUS RHYTHM EKG Impression: RBBB AND LAFB Electronically Signed By: Jus Patterson 13-Dec-2017 15:59:27
[2017-12-13] MEDS: AMPICILLIN/SULBACTAM 3 GM in STERILE WATER INJ 8 ML IV SCH ×2 (05:02→12:17)
[2017-12-13] MEDS: traMADol 50 MG TAB PO PRN (05:54)
[2017-12-13] MEDS: ENOXAPARIN 100 MG/ML SYR SC SCH ×2 (07:26→19:21)
[2017-12-13] MEDS: SENNOSIDES/DOCUSATE SODIUM TAB PO SCH ×2 (08:54→20:32)
[2017-12-13] MEDS: oxyCODONE IR 5 MG TAB PO PRN ×4 (09:01→20:32)
--- NOTE | 2017-12-13 10:40 | HOSPPROG ---
Hospitalist Progress Note Assessment/Plan: Patient is a 62-year-old male who has a history of cluster headaches. He was noted on admission that he had probable multifocal hepatic abscesses. Back in October developed a viral syndrome. He had a CT of his chest which showed no PE. But showed 2 large hypodense areas within the liver. Today is my 1st encounter with the patient. Chart reviewed. Discussed his care with Dr. Moise * Liver abscess s/p IR drain (polymicrobial bowel gwen, parasite negative) -IV Unasyn -to get a second drain tomorrow (will hold a.m. Lovenox dose tomorrow and hold Toradol) * DVT -SQ Lovenox -transition to oral agent when sure no further procedures needed * Acute right knee pain, s/p previous reconstruction - post traumatic arthritis -NSAIDS prn * Ileus -improved on Reglan * Cluster headaches - resolved * Pain due to drains and abscess -cont medications prn *Plan: to go to IR tomorrow for second drain, spoke w pharmacy and Lovenox will be held after tonight's dose Subjective: Landry is c/o pain on ruq area, worse with ambulation. Objective: Vital Signs Temp Pulse Resp BP Pulse Ox 36.7 C 66 16 140/87 H 90 L 12/13/17 08:00 12/13/17 08:00 12/13/17 08:00 12/13/17 08:00 12/13/17 08:00 Microbiology 12/06/17 15:30 Gram Stain - Final Liver - Aspirate 12/06/17 15:30 Mycobacterial Smear (KOFI) - Final Liver - Aspirate Laboratory Results 12/12/17 05:55 12/12/17 05:55 12/12/17 12/13/17 12/14/17 05:59 05:59 05:59 Intake Total 680 316 Output Total 1100 775 Balance -420 -459 PT 15.7 SEC (12.0-15.0) H 12/06/17 05:15 INR 1.23 (0.83-1.16) H 12/06/17 05:15 - Physical Exam Constitutional: uncomfortable, No not in pain Eyes: PERRL Ears, Nose, Mouth, Throat: hearing normal Cardiovascular: regular rate and rhythym Respiratory: no respiratory distress Skin: warm Musculoskeletal: generalized weakness Neurologic: AAOx3 Psychiatric: interacting appropriately, not anxious ICD10 Worksheet Patient Problems: Problems Problem Status Onset Chest pain Acute Liver mass Acute
[2017-12-13] MEDS: KETOROLAC 15 MG/1 ML SDV IVP PRN (11:17)
[2017-12-13] MEDS: AMPICILLIN/SULBACTAM 3 GM VIAL IV SCH (17:37)
--- NOTE | 2017-12-13 18:37 | ASMTCMCOM ---
CM Note CM Note Notes: Spoke w/RN, pt will dc home w/ [facility] for IV abx. [facility] here to meet with pt to discuss insurance coverage. DC Plan: [employer] Date Signed: 12/13/2017 06:37 PM Electronically Signed By:Maggie Matias RN
--- NOTE | 2017-12-13 20:26 | PCMIDPN ---
Assessment/Plan: Assessment/Plan: * Multifocal hepatic abscess: Cultures with growth of Fusobacterium and Parvimonas - continue Unasyn. Overall clinically improved with residual right upper quadrant pain. Repeat CT shows well drained abscess were drain present and persistent 2nd abscess which has not changed significantly in size. Given persistent abscess collection, think will benefit from drainage of this abscess is well. Discussed with Radiology today and abscesses amenable to percutaneous drainage. Has been receiving Lovenox so procedure would need to be performed tomorrow after Lovenox held. Clinical findings and plan discussed with patient and Sydney Norwood NP today. 12/13/17 20:23 Subjective: Overall patient feels improved with persistent right upper quadrant pain. Objective: Vital Signs Temp Pulse Resp BP Pulse Ox 37.6 C 77 16 133/89 H 92 12/13/17 19:17 12/13/17 19:17 12/13/17 19:17 12/13/17 19:17 12/13/17 19:17 Microbiology 12/06/17 15:30 Gram Stain - Final Liver - Aspirate Anaerobic Culture - Final Parvimonas Micra Fusobacterium Nucleatum Laboratory Results 12/12/17 05:55 12/12/17 05:55 12/12/17 12/13/17 12/14/17 05:59 05:59 05:59 Intake Total 680 316 450 Output Total 1100 775 617 Balance -420 -459 -167 ESR 97 MM/HR (0-20) H 12/11/17 03:44 C-Reactive Protein 174.0 mg/L (<10.0) H 12/10/17 04:00 Unasyn # 2, antibiotics # 8 CT abdomen pelvis shows well drained abscess where drain present; 2nd abscess measuring 5.3 x 4.3 cm persists - Physical Exam General Appearance: alert, no apparent distress EENT: No scleral icterus, No thrush Respiratory: lungs clear, No respiratory distress Cardiac/Chest: regular rate, rhythm Abdomen: tender (Right upper quadrant; small amount of purulent material KRUPA bulb ), No distended ICD10 Worksheet Patient Problems: Problems Problem Status Onset Chest pain Acute Liver mass Acute
[2017-12-14] MEDS: oxyCODONE IR 5 MG TAB PO PRN ×5 (00:42→20:17)
[2017-12-14] MEDS: AMPICILLIN/SULBACTAM 3 GM VIAL IV SCH ×4 (00:43→18:41)
[2017-12-14] MEDS: ONDANSETRON DISINTEGRATING 4 MG TAB PO PRN (00:49)
[2017-12-14] MEDS: ONDANSETRON 4 MG/2 ML VIAL IVP PRN (09:10)
--- NOTE | 2017-12-14 09:38 | HOSPPROG ---
Hospitalist Progress Note Assessment/Plan: Patient is a 62-year-old male who has a history of cluster headaches. He was noted on admission that he had probable multifocal hepatic abscesses. Back in October developed a viral syndrome. He had a CT of his chest which showed no PE. But showed 2 large hypodense areas within the liver. * Liver abscess s/p IR drain Cultures with growth of Fusobacterium and Parvimonas -IV Unasyn -to get a second drain today (will hold a.m. Lovenox dose and hold Toradol) * DVT -SQ Lovenox -transition to oral agent when sure no further procedures needed * Acute right knee pain, s/p previous reconstruction - post traumatic arthritis -NSAIDS prn * Ileus -improved on Reglan * Cluster headaches - resolved * Pain due to drains and abscess -cont medications prn *nausea -prn meds -suspect he may be constipated (will add bowel protocol) *Plan: will need Lovenox resumed, start IV fluids while NPO Subjective: Landry is c/o pain in RUQ area and ongoing nausea. Objective: Vital Signs Temp Pulse Resp BP Pulse Ox 36.8 C 65 16 132/81 H 95 12/14/17 07:13 12/14/17 07:13 12/14/17 07:13 12/14/17 07:13 12/14/17 07:13 Microbiology 12/06/17 15:30 Gram Stain - Final Liver - Aspirate Anaerobic Culture - Final Parvimonas Micra Fusobacterium Nucleatum Laboratory Results 12/12/17 05:55 12/12/17 05:55 12/13/17 12/14/17 12/15/17 05:59 05:59 05:59 Intake Total 316 450 Output Total 775 1717 Balance -459 -1267 PT 15.7 SEC (12.0-15.0) H 12/06/17 05:15 INR 1.23 (0.83-1.16) H 12/06/17 05:15 - Physical Exam Constitutional: uncomfortable, No not in pain Eyes: PERRL Ears, Nose, Mouth, Throat: hearing normal Cardiovascular: regular rate and rhythym Respiratory: no respiratory distress Gastrointestinal: tenderness (ruq), other (drain from ruq w beige tinged drainage), No normoactive bowel sounds (slightly hypoactive) Skin: warm Musculoskeletal: generalized weakness Neurologic: AAOx3 Psychiatric: anxious ICD10 Worksheet Patient Problems: Problems Problem Status Onset Chest pain Acute Liver mass Acute
[2017-12-14] MEDS ORDERED: NS 1,000 ML IV SCH (09:45)
[2017-12-14] MEDS: SENNOSIDES/DOCUSATE SODIUM TAB PO SCH ×3 (10:28→20:17)
--- NOTE | 2017-12-14 10:36 | PCMIDPN ---
Assessment/Plan: Assessment/Plan: * Multifocal hepatic abscess: Plans for CT-guided drainage of 2nd hepatic abscess today. Will obtain repeat cultures although likely related to similar gwen. Continue Unasyn. Follow initial drain output as this may be amenable to removal soon. Tolerating Unasyn well. Plan of care including ongoing antibiotics and abscess drainage discussed with patient today. 12/14/17 10:32 Subjective: Patient complains of residual right upper quadrant pain although less prominent than prior. Appetite remains poor. Objective: Vital Signs Temp Pulse Resp BP Pulse Ox 36.8 C 65 16 132/81 H 95 12/14/17 07:13 12/14/17 07:13 12/14/17 07:13 12/14/17 07:13 12/14/17 07:13 Microbiology 12/06/17 15:30 Gram Stain - Final Liver - Aspirate Anaerobic Culture - Final Parvimonas Micra Fusobacterium Nucleatum Laboratory Results 12/12/17 05:55 12/12/17 05:55 12/13/17 12/14/17 12/15/17 05:59 05:59 05:59 Intake Total 316 450 Output Total 775 1717 Balance -459 -1267 ESR 97 MM/HR (0-20) H 12/11/17 03:44 C-Reactive Protein 174.0 mg/L (<10.0) H 12/10/17 04:00 Unasyn # 3, antibiotics # 9 - Physical Exam General Appearance: alert, no apparent distress, non-toxic EENT: No scleral icterus, No thrush Respiratory: lungs clear, No respiratory distress Cardiac/Chest: regular rate, rhythm, No systolic murmur Abdomen: non-tender, No distended - Line/s RUE PICC Lines: No drainage, No erythema ICD10 Worksheet Patient Problems: Problems Problem Status Onset Chest pain Acute Liver mass Acute
--- NOTE | 2017-12-14 15:11 | ASMTCMCOM ---
CM Note CM Note Notes: Spoke w/MD, patient may not want to do home infusion. Per Dr. Moise, he can adjust his infusion to once a day and pt can come to outpt infusion. Patient will be here through the weekend, he needs to have an abcess drained, CM will continue to follow. DC Plan: TBD Date Signed: 12/14/2017 03:10 PM Electronically Signed By:Maggie Matias RN
[2017-12-14] MEDS ORDERED: ENOXAPARIN 100 MG/ML SYR SC ONE (16:21)
[2017-12-14] MEDS: ACETAMINOPHEN 325 MG TAB PO PRN (21:21)
[2017-12-14] MEDS ORDERED: D5W NS 1,000 ML IV SCH (23:55)
[2017-12-15] MEDS: oxyCODONE IR 5 MG TAB PO PRN ×5 (00:09→20:59)
[2017-12-15] MEDS: AMPICILLIN/SULBACTAM 3 GM VIAL IV SCH ×4 (00:09→19:33)
[2017-12-15] MEDS: SENNOSIDES/DOCUSATE SODIUM TAB PO SCH ×2 (07:51→20:58)
--- NOTE | 2017-12-15 09:06 | PCMIDPN ---
Assessment/Plan: 1. Multifocal hepatic abscesses: Patient to have drainage of the larger posterior abscess today. The drain placed in the other abscess is not putting out much; agree that this can likely be pulled in short order. Will continue to monitor. Continue Unasyn as is. No change in antibiotics. Fungal cultures have been negative. HIV antibody negative. Subjective: Patient did not undergo drainage of the larger posterior abscess yesterday. To have the procedure this morning. He is somewhat anxious about this. No overnight events otherwise. Continues to have some discomfort when he takes a deep breath in the right lower lung area. No diarrhea. No nausea or vomiting on the antibiotics. Objective: Unasyn 3 g IV q.6 hours day 4 (antibiotics day 10) T-max 37.2 degrees Vital Signs Temp Pulse Resp BP Pulse Ox 37.2 C 54 L 18 121/82 H 97 12/15/17 07:56 12/15/17 07:56 12/15/17 07:56 12/15/17 07:56 12/15/17 07:56 Laboratory Results 12/12/17 05:55 12/12/17 05:55 12/14/17 12/15/17 12/16/17 05:59 05:59 05:59 Intake Total 450 350 Output Total 1717 1821 Balance -1267 -1471 ESR 97 MM/HR (0-20) H 12/11/17 03:44 C-Reactive Protein 174.0 mg/L (<10.0) H 12/10/17 04:00 Hepatic abscess cultures have grown fusobacterium and parvimonas Fungal cultures negative - Physical Exam General Appearance: alert, no apparent distress EENT: pharynx normal, No thrush Respiratory: lungs clear, other (Poor inspiratory effort given discomfort with deep inspiration.) Cardiac/Chest: regular rate, rhythm Extremities: other (PICC line right upper extremity looks fine) Abdomen: soft, distended, other (KRUPA drain on the right side is empty) Skin: No rash ICD10 Worksheet Patient Problems: Problems Problem Status Onset Chest pain Acute Liver mass Acute
[2017-12-15] MEDS ORDERED: DEXMEDETOMIDINE/NS 4MCG/ML 50 ML BTL IV ONE (10:11)
[2017-12-15] MEDS ORDERED: FLUMAZENIL 0.5 MG/5 ML MDV IVP PRN (10:42)
[2017-12-15] MEDS ORDERED: NALOXONE HCL 0.4 MG/ML INJ IVP PRN (10:42)
[2017-12-15] MEDS ORDERED: MEPERIDINE 25 MG/ML SYR IVP PRN (10:42)
[2017-12-15] MEDS ORDERED: MIDAZOLAM 2 MG/2 ML VIAL IVP PRN (10:42)
[2017-12-15] MEDS ORDERED: NS 1,000 ML IV SCH (10:45)
[2017-12-15] MEDS: fentaNYL 100 MCG/2 ML INJ IVP PRN ×3 (10:57→14:16)
[2017-12-15] MEDS ORDERED: DEXMEDETOMIDINE IN 0.9 % NACL 50 ML IV ONE (12:00)
--- NOTE | 2017-12-15 12:16 | PDPROPOC ---
Sedation Plan of Care Sedation Plan of Care: vital signs stable, mental status noted, patient educated of risks, benefits, alternatives, patient can tolerate sedation ASA Classification: ASA 3 Planned drugs: fentanyl, midazolam, other (precedex) Mallampati Score: Class 2 Mallampati Reference Image: Patient passed 3-3-2 rule?: Yes
--- NOTE | 2017-12-15 15:33 | HOSPPROG ---
Hospitalist Progress Note Assessment/Plan: Patient is a 62-year-old male who has a history of cluster headaches. He was noted on admission that he had probable multifocal hepatic abscesses. Back in October developed a viral syndrome. He had a CT of his chest which showed no PE. But showed 2 large hypodense areas within the liver. Met with the patient w Dr Juarez. * Liver abscess s/p IR drain Cultures with growth of Fusobacterium and Parvimonas -IV Unasyn -did not get a drain today but an aspiration of approximately 30 ml of purulent fluid removed -reviewed care with Dr Poe, will resume Lovenox early tomorrow morning. * DVT -SQ Lovenox -transition to oral agent when sure no further procedures needed * Acute right knee pain, s/p previous reconstruction - post traumatic arthritis -NSAIDS prn * Ileus -improved on Reglan * Cluster headaches - resolved * Pain due to drains and abscess -cont medications prn *nausea -none today *Plan: will need Lovenox resumed; will start tomorrow morning/ tonight will give him a one time dvt prophylaxis dose Subjective: Landry has no complaints. Has ongoing ruq discomfort. Objective: Vital Signs Temp Pulse Resp BP Pulse Ox 36.5 C 52 L 20 144/83 H 96 12/15/17 14:57 12/15/17 14:57 12/15/17 14:57 12/15/17 14:57 12/15/17 14:57 Laboratory Results 12/12/17 05:55 12/12/17 05:55 12/14/17 12/15/17 12/16/17 05:59 05:59 05:59 Intake Total 450 350 151.4 Output Total 1717 1821 230 Balance -1267 -1471 -78.6 PT 15.7 SEC (12.0-15.0) H 12/06/17 05:15 INR 1.23 (0.83-1.16) H 12/06/17 05:15 - Physical Exam Constitutional: no apparent distress, uncomfortable Eyes: PERRL Ears, Nose, Mouth, Throat: hearing normal Cardiovascular: regular rate and rhythym Respiratory: no respiratory distress Gastrointestinal: tenderness (ruq) Skin: warm, normal color Musculoskeletal: full muscle strength Neurologic: AAOx3 Psychiatric: interacting appropriately ICD10 Worksheet Patient Problems: Problems Problem Status Onset Chest pain Acute Liver mass Acute
[2017-12-15] MEDS ORDERED: ENOXAPARIN 40 MG/0.4 ML SYR SC ONE (21:00)
[2017-12-16] MEDS: oxyCODONE IR 5 MG TAB PO PRN ×6 (00:28→22:31)
[2017-12-16] MEDS: AMPICILLIN/SULBACTAM 3 GM VIAL IV SCH ×5 (00:28→23:43)
[2017-12-16] MEDS: ENOXAPARIN 100 MG/ML SYR SC SCH ×2 (06:01→18:09)
--- NOTE | 2017-12-16 09:49 | PCMIDPN ---
Assessment/Plan: 1. Multifocal hepatic abscesses: Status post drainage of the posterior abscess, with radiographic improvement postprocedure. The drain in the 1st abscess only drain cc in the past 24 hr. Will contact IR today to ascertain whether drain can be pulled. Continue Unasyn as is. 12/16/17 09:45 Subjective: Having some muscle spasms in his right upper quadrant, mcgill no nausea vomiting or diarrhea. 30 cc of pus was removed from posterior liver abscess. At the procedure, the abscess was used site from 5.4 x 5 cm to 3.6 x 3.1 cm. Objective: Unasyn 3 g q.6 hours day 5 (antibiotics day 11) T 37.7 degrees Vital Signs Temp Pulse Resp BP Pulse Ox 36.6 C 52 L 16 116/71 97 12/16/17 07:00 12/16/17 07:00 12/16/17 07:00 12/16/17 07:00 12/16/17 07:00 Microbiology 12/15/17 13:11 Gram Stain - Final Liver - Aspirate Laboratory Results 12/12/17 05:55 12/12/17 05:55 12/15/17 12/16/17 12/17/17 05:59 05:59 06:59 Intake Total 350 701.4 Output Total 1821 1340 Balance -1471 -638.6 ESR 97 MM/HR (0-20) H 12/11/17 03:44 C-Reactive Protein 174.0 mg/L (<10.0) H 12/10/17 04:00 No new microbiology - Physical Exam General Appearance: alert, no apparent distress EENT: pharynx normal, No thrush Respiratory: other (Decreased breath sounds right base) Abdomen: other (Drain right upper quadrant empty) Skin: No rash ICD10 Worksheet Patient Problems: Problems Problem Status Onset Chest pain Acute Liver mass Acute
[2017-12-16] MEDS ORDERED: IOPAMIDOL (ISOVUE-300) 150 ML BTL ONE (10:10)
[2017-12-16] MEDS: SENNOSIDES/DOCUSATE SODIUM TAB PO SCH ×2 (10:10→20:04)
[2017-12-16] MEDS ORDERED: IOPAMIDOL (ISOVUE-M 300) 15 ML VIAL ONE (10:42)
--- NOTE | 2017-12-16 12:18 | HOSPPROG ---
Hospitalist Progress Note Assessment/Plan: Patient is a 62-year-old male who has a history of cluster headaches. He was noted on admission that he had probable multifocal hepatic abscesses. Back in October developed a viral syndrome. He had a CT of his chest which showed no PE. But showed 2 large hypodense areas within the liver. 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 Overall the patient looks much improved. Will DC the telemetry and continuous oximetry monitoring Vivian him more freedom to get to the bathroom and ambulate. Full-dose Lovenox resumed today. Subjective: Landry is feeling overall better today, has some ongoing ruq tenderness. Objective: Vital Signs Temp Pulse Resp BP Pulse Ox 36.8 C 65 18 128/79 H 95 12/16/17 10:57 12/16/17 10:57 12/16/17 10:57 12/16/17 10:57 12/16/17 10:57 Microbiology 12/15/17 13:11 Gram Stain - Final Liver - Aspirate Laboratory Results 12/12/17 05:55 12/12/17 05:55 12/15/17 12/16/17 12/17/17 05:59 05:59 06:59 Intake Total 350 701.4 Output Total 1821 1340 Balance -1471 -638.6 PT 15.7 SEC (12.0-15.0) H 12/06/17 05:15 INR 1.23 (0.83-1.16) H 12/06/17 05:15 - Physical Exam Constitutional: uncomfortable Eyes: PERRL Ears, Nose, Mouth, Throat: moist mucous membranes Cardiovascular: regular rate and rhythym Respiratory: no respiratory distress Gastrointestinal: normoactive bowel sounds, tenderness (ruq) Skin: warm Musculoskeletal: full muscle strength, no muscle tenderness Neurologic: AAOx3 Psychiatric: interacting appropriately ICD10 Worksheet Patient Problems: Problems Problem Status Onset Chest pain Acute Liver mass Acute
[2017-12-16] MEDS: ONDANSETRON DISINTEGRATING 4 MG TAB PO PRN ×2 (13:24→22:32)
--- NOTE | 2017-12-16 15:53 | ASMTCMCOM ---
CM Note CM Note Notes: Plan remains the same, pt stephanie dc Mon/Mon. Pt to decided if he wants to dc independent and come to outpt infusion or dc w/[facility] for home infusion. DC Plan: Home infusion vs Outpatient Date Signed: 12/16/2017 03:52 PM Electronically Signed By:Maggie Matias RN
[2017-12-16] MEDS: SIMETHICONE 80 MG TAB CHEW PO PRN (18:38)
[2017-12-17] MEDS: oxyCODONE IR 5 MG TAB PO PRN ×5 (04:20→20:07)
[2017-12-17] MEDS: ENOXAPARIN 100 MG/ML SYR SC SCH (06:11)
[2017-12-17] MEDS: AMPICILLIN/SULBACTAM 3 GM VIAL IV SCH ×3 (06:11→18:07)
--- NOTE | 2017-12-17 08:33 | PCMIDPN ---
Assessment/Plan: 1. Multifocal hepatic abscesses: Drain removed from 1 of the abscess pockets yesterday given minimal drainage. The patient will likely need 4 weeks of parenteral therapy, then 2 weeks of oral antibiotics thereafter. He would like to have antibiotics done at home. Will talk to social work today, as I suspect he can likely go home tomorrow. He will also need repeat CT scan moving forward, and this was all explained to him today. 2. Abdominal discomfort: Check safety labs today including CBC, CMP, and lipase . Needs to start bowel protocol given no bowel movement in 4 days. 12/17/17 08:33 Subjective: "I had a difficult night." The patient reports that he had some central abdominal discomfort, with some mild nausea, but no vomiting. He still has mild central abdominal discomfort, but it is improved compared with last evening. Pain in the right upper quadrant is better since drain was removed. Has not had a BM in 4 days Objective: Unasyn 3 g IV q.6 hours day 6 (antibiotics day 12) T-max 37.3 degrees Vital Signs Temp Pulse Resp BP Pulse Ox 36.8 C 66 16 123/82 H 89 L 12/17/17 07:27 12/17/17 07:27 12/17/17 07:27 12/17/17 07:27 12/17/17 07:27 Microbiology 12/15/17 13:11 Gram Stain - Final Liver - Aspirate Laboratory Results 12/12/17 05:55 12/12/17 05:55 12/16/17 12/17/17 12/18/17 04:59 05:59 05:59 Intake Total Output Total Balance ESR 97 MM/HR (0-20) H 12/11/17 03:44 C-Reactive Protein 174.0 mg/L (<10.0) H 12/10/17 04:00 No new microbiology. Previous cultures have grown parvimonas and fusobacterium. Fungal cultures negative - Physical Exam General Appearance: no apparent distress, obese EENT: No scleral icterus, No thrush Respiratory: lungs clear Cardiac/Chest: regular rate, rhythm, No systolic murmur Extremities: other (PICC line right upper extremity without swelling, tenderness or erythema.) Abdomen: non-tender, soft Skin: No rash ICD10 Worksheet Patient Problems: Problems Problem Status Onset Chest pain Acute Liver mass Acute
[2017-12-17] MEDS: SENNOSIDES/DOCUSATE SODIUM TAB PO SCH ×2 (09:05→20:07)
--- NOTE | 2017-12-17 09:47 | HOSPPROG ---
Hospitalist Progress Note Assessment/Plan: Patient is a 62-year-old male who has a history of cluster headaches. He was noted on admission that he had probable multifocal hepatic abscesses. Back in October developed a viral syndrome. He had a CT of his chest which showed no PE. But showed 2 large hypodense areas within the liver. * Liver abscess s/p IR drain Cultures with growth of Fusobacterium and Parvimonas -IV Unasyn -s/p aspiration of approximately 30 ml of purulent fluid removed -drain removed yesterday * DVT -SQ Lovenox bid, will change to Xarelto starting this evening * Acute right knee pain, s/p previous reconstruction - post traumatic arthritis -NSAIDS prn * Ileus -improved on Reglan * Cluster headaches - resolved * Pain due to drains and abscess -cont medications prn *nausea -none today *Plan: to be dc tomorrow most likely, start Xarelto Subjective: Landry is feeling light headed at times, appetite is poor, food tastes poorly to him. Objective: Vital Signs Temp Pulse Resp BP Pulse Ox 36.8 C 66 16 123/82 H 89 L 12/17/17 07:27 12/17/17 07:27 12/17/17 07:27 12/17/17 07:27 12/17/17 07:27 Microbiology 12/15/17 13:11 Gram Stain - Final Liver - Aspirate Laboratory Results 12/12/17 05:55 12/12/17 05:55 12/16/17 12/17/17 12/18/17 04:59 05:59 05:59 Intake Total Output Total Balance PT 15.7 SEC (12.0-15.0) H 12/06/17 05:15 INR 1.23 (0.83-1.16) H 12/06/17 05:15 - Physical Exam Constitutional: no apparent distress, uncomfortable Eyes: PERRL Ears, Nose, Mouth, Throat: hearing normal Cardiovascular: regular rate and rhythym Respiratory: no respiratory distress Gastrointestinal: normoactive bowel sounds Skin: warm Musculoskeletal: full muscle strength Neurologic: AAOx3 Psychiatric: interacting appropriately ICD10 Worksheet Patient Problems: Problems Problem Status Onset Chest pain Acute Liver mass Acute
[2017-12-17 12:57] LABS: PLATELET COUNT 437 10^3/uL (150-400)
[2017-12-17] MEDS: ACETAMINOPHEN 325 MG TAB PO PRN ×2 (15:40→20:07)
[2017-12-17] MEDS: RIVAROXABAN 15 MG TAB PO SCH (18:06)
[2017-12-17] MEDS: ONDANSETRON DISINTEGRATING 4 MG TAB PO PRN (20:07)
[2017-12-18 00:29] VITALS: RESP 14
[2017-12-18] MEDS: AMPICILLIN/SULBACTAM 3 GM VIAL IV SCH ×3 (00:42→12:19)
[2017-12-18] MEDS: oxyCODONE IR 5 MG TAB PO PRN ×2 (01:37→09:05)
[2017-12-18 08:25] VITALS: BP 118/79; PULSE 56; TEMP 98.2; O2SAT 90
[2017-12-18] MEDS: SENNOSIDES/DOCUSATE SODIUM TAB PO SCH (09:00)
[2017-12-18] MEDS: RIVAROXABAN 15 MG TAB PO SCH (09:00)
--- NOTE | 2017-12-18 11:35 | PDIAF ---
- Diagnosis Diagnosis: liver abscess Code Status: Full Code - Medication Management Discharge Medications: Medications to Continue on Transfer Herbals/Supplements -Info Only 1 ea PO DAILY 12/05/17 [Last Taken Unknown] Acetaminophen [Tylenol 325mg (*)] 650 mg PO Q4HRS PRN tab 12/18/17 [Last Taken Unknown] Ampicillin/Sulbactam [Unasyn] 3 gm IV Q6HRS vial 12/18/17 [Last Taken Unknown] Ondansetron Odt [Zofran Odt 4 mg (*)] 4 mg PO Q4HRS PRN #30 tab 12/18/17 [Last Taken Unknown] Polyethylene Glycol 3350 [Miralax 17 gm (*)] 17 gm PO DAILY PRN pkt 12/18/17 [ Last Taken Unknown] Promethazine HCl [Phenergan 12.5mg tab] 12.5 mg PO Q6 #20 tablet 12/18/17 [Last Taken Unknown] Rivaroxaban [Xarelto 15mg (*)] 15 mg PO BIDMEAL #40 tab 12/18/17 [Last Taken Unknown] Sennosides/Docusate Sodium [Senokot-S] 1 - 2 tab PO BID tab 12/18/17 [Last Taken Unknown] Simethicone [Mylicon] 80 mg PO QID PRN tab.chew 12/18/17 [Last Taken Unknown] oxyCODONE IR [Oxycodone Ir (*)] 5 - 10 mg PO Q3 PRN #30 tab 12/18/17 [Last Taken Unknown] Discharge Medications: Refer to the Discharge Home Medication list for PRN reason. PICC Care - Routine: Yes - Orders Services needed: Home Care, Registered Nurse, Occupational Therapy Home Care Face to Face: I certify that this patient was under my care and that I had the required [id number] encounter meeting the encounter requirements on the discharge day. My findings support the fact that the patient is homebound as defined in Home Care Face to Face Continued: CMS Chapter 7 Medicare Benefits Manual 30.1.1 , The condition of the patient is such that there exists a normal inability to leave home and consequently, leaving home would require a considerable and taxing effort. Diet Recommendation: no restrictions on diet - Labs/Radiology HCT/HGB Date: 12/20/17 - Follow Up Care Current Providers and Referrals: HEMA RUSSO [Primary Care Provider] - As per Instructions
--- NOTE | 2017-12-18 13:52 | PDIAF ---
- Diagnosis Diagnosis: liver abscess Code Status: Full Code - Medication Management Discharge Medications: Medications to Continue on Transfer Herbals/Supplements -Info Only 1 ea PO DAILY 12/05/17 [Last Taken Unknown] Acetaminophen [Tylenol 325mg (*)] 650 mg PO Q4HRS PRN tab 12/18/17 [Last Taken Unknown] Ampicillin/Sulbactam [Unasyn] 3 gm IV Q6HRS vial 12/18/17 [Last Taken Unknown] Ondansetron Odt [Zofran Odt 4 mg (*)] 4 mg PO Q4HRS PRN #30 tab 12/18/17 [Last Taken Unknown] Polyethylene Glycol 3350 [Miralax 17 gm (*)] 17 gm PO DAILY PRN pkt 12/18/17 [ Last Taken Unknown] Promethazine HCl [Phenergan 12.5mg tab] 12.5 mg PO Q6 #20 tablet 12/18/17 [Last Taken Unknown] Rivaroxaban [Xarelto 15mg (*)] 15 mg PO BIDMEAL #40 tab 12/18/17 [Last Taken Unknown] Sennosides/Docusate Sodium [Senokot-S] 1 - 2 tab PO BID tab 12/18/17 [Last Taken Unknown] Simethicone [Mylicon] 80 mg PO QID PRN tab.chew 12/18/17 [Last Taken Unknown] oxyCODONE IR [Oxycodone Ir (*)] 5 - 10 mg PO Q3 PRN #30 tab 12/18/17 [Last Taken Unknown] [facility] Antibiotics: Invanz 1 g IV q 24 hours [facility] Antibiotic Stop Date: 01/13/18 Discharge Medications: Refer to the Discharge Home Medication list for PRN reason. PICC Care - Routine: Yes - Orders Services needed: Home Care, Registered Nurse, Occupational Therapy Home Care Face to Face: I certify that this patient was under my care and that I had the required [id number] encounter meeting the encounter requirements on the discharge day. My findings support the fact that the patient is homebound as defined in Home Care Face to Face Continued: CMS Chapter 7 Medicare Benefits Manual 30.1.1 , The condition of the patient is such that there exists a normal inability to leave home and consequently, leaving home would require a considerable and taxing effort. Diet Recommendation: no restrictions on diet - Labs/Radiology CBC w/diff Date: 12/20/17 (weekly q Mon) CMP Date: 12/20/17 (weekly q Mon) Call or Fax Lab and Imaging Results to: Dr. Miller [phone] - Follow Up Care Current Providers and Referrals: HEMA RUSSO [Primary Care Provider] - As per Instructions Vinny Miller MD [Medical Doctor] - 12/25/17 2:00 pm
--- NOTE | 2017-12-18 15:32 | PCMIDPN ---
Assessment/Plan: Assessment/Plan: * Multifocal hepatic abscess: Initial abscess drain removed and second abscess treated with aspiration alone given location made drain placement more problematic - cultures from second abscess aspirate are no growth to date. Overall showing gradual clinical improvement. Will transition Unasyn to ertapenem for ease of outpatient administration as this can be given daily and should provide excellent activity against isolated pathogens. Plan 4 weeks of therapy post recent abscess aspiration. Plan CT scan of abdomen and pelvis toward close of therapy to assess for resolution. Will have follow-up in our office next week. Plan weekly laboratories while on ertapenem. Time spent, 30 min, of which greater than half was spent on education/counseling /coordination of care related to multifocal hepatic abscess and plan of care including outpatient IV ertapenem. 12/18/17 15:29 12/18/17 15:33 Subjective: Patient with nausea overnight. Still with some right upper quadrant discomfort and decrease in appetite. Objective: Vital Signs Temp Pulse Resp BP Pulse Ox 36.8 C 56 L 14 118/79 90 L 12/18/17 08:00 12/18/17 08:00 12/18/17 08:00 12/18/17 08:00 12/18/17 08:00 Microbiology 12/15/17 13:11 Gram Stain - Final Liver - Aspirate Laboratory Results 12/17/17 12:30 12/17/17 12:30 12/17/17 12/18/17 12/19/17 05:59 05:59 05:59 Intake Total 616 Output Total Balance 616 ESR 97 MM/HR (0-20) H 12/11/17 03:44 C-Reactive Protein 174.0 mg/L (<10.0) H 12/10/17 04:00 Unasyn # 7 Antibiotics # 13 2nd aspirate 12/15/2017 Gram stain negative, culture no growth to date [place] serology pending - Physical Exam General Appearance: alert, no apparent distress EENT: No scleral icterus, No thrush Abdomen: non-tender, No distended - Line/s RUE PICC Lines: No drainage, No erythema ICD10 Worksheet Patient Problems: Problems Problem Status Onset Chest pain Acute Liver mass Acute
[2017-12-18] MEDS ORDERED: ERTAPENEM 1 GM VIAL IV ONE (16:00)
--- NOTE | 2017-12-18 16:01 | GDS ---
[f rep st] DISCHARGE SUMMARY DISCHARGE DIAGNOSES: 1. Liver abscess. 2. Deep venous thrombosis. 3. Acute right knee pain. 4. Ileus. 5. Cluster headaches. 6. Pain. 7. Nausea. CONSULTATIONS: 1. Infectious Disease. 2. Interventional Radiology. PHYSICAL EXAM: GENERAL: The patient is alert. VITAL SIGNS: Afebrile at 36.8, pulse is 56, respira tory rate 14, blood pressure is 118/79, saturating 90% on room air. I have seen and evaluated the any mehta on the day of discharge. HOSPITAL COURSE: The patient is a 62-year-old male who has had a complicated hospital course. He pr esented to the emergency room with complaints of illness. He was evaluated and diagnosed with: 1. Liver abscess: During this hospitalization, he received a drain and culture was performed. He h as been treated with IV Unasyn during this hospitalization and transitioned to IV Invanz at the time of disposition. He will continue IV Invanz in the outpatient setting, which has been arranged for hi m to be continued at home via PICC line. He will follow up with Infectious Disease outside the [facility]. 2. DVT: The patient was on subcu Lovenox twice daily and has been transitioned to Xarelto prior to disposition. A prescription has been provided for him for Xarelto 10 mg twice daily, to transition t o standard dosing after 21 days. He is in agreement with the plan and understands. 3. Acute right knee pain: This has resolved. 4. Ileus. This has improved. The patient has had multiple bowel movements prior to disposition. I have educated him with regard to remaining unconstipated in the outpatient setting. He understands this and is in agreement with this. 5. Cluster headaches: None. 6. Nausea: A prescription for Phenergan has been prescribed at the time of disposition. DISPOSITION: The patient will be discharged home with outpatient followup and home IV infusions. Th ere are no pending studies. DISCHARGE MEDICATIONS: Please refer to EMR form. I have provided the patient a prescription for Zof ran, oxycodone IR, Phenergan, Xarelto, and have instructed him to not become constipated after dispos ition. FOLLOWUP: He will follow up with his primary care physician Dr. Flavia Berrios, as well as Infectious Disease. I spent greater than 35 minutes in the care, coordination, and management of the patient's dispositio n. /[id number]/MODL
--- NOTE | 2017-12-19 09:35 | ASDISCHSUM ---
Discharge Information Plan Status:Home with Home Health Medically Cleared to Leave:12/18/2017 Discharge Date:12/18/2017 05:11 PM D/C Disposition: ADT D/C Disposition:Home Health Service Projected Discharge Date:12/18/2017 11:00 AM Transportation at D/C: Discharge Delay Reason: Follow-Up Date:12/18/2017 11:00 AM Discharge Slot: Final Diagnosis: Placement Information Referral Type:Home Infusion Referral ID:[id number] Provider Name:[facility] ([facility]) Address 1:[address] Address 2: City:[place] Selection Factors: State:[place] Referral Type:*Home Health Care Services Referral ID:[id number] Provider Name:[facility] Address 1:[address] Address 2: City:[place] Selection Factors: State:[place] Patient Contact Information Contact Name:VAHID Relationship:Daughter Address:[address] City:[place] Phone: State/Zip Code:[place] [address] Email: Financial Information Financial Class:[employer] Primary Plan Desc:[employer] [facility] Primary Plan Number:[id number] Secondary Plan Desc: Secondary Plan Number: Assessment Information [facility] Initial CM Assessment Living Arrangements What is your living Answers: Alone arrangement? Who do you live with? Type Of Residence What kind of residence do Answers: House you live in? Discharge Plan Comments Coordination Status Comments Notes: Pts case discussed in morning rounds. Pt is a 62 y/o man admitted for chest pain. PT has been ordered and awaiting recommendations. Pt will most likely d/c independent when medically stable. CM available for d/c needs. Plan: Independent Date Signed: 12/06/2017 02:52 PM Electronically Signed By:RAMONE Swanson [facility] Progress Note CM Note CM Note Notes: Pts case discussed in morning rounds. Therapies are recommending SNF. Pt would like to d/c with HC. Pt has selected [facility]. Referral sent. [facility] is able to accept. returned a call to Chrisoksana (P#: [phone] [id number]) through [employer] and provided d/c updates. CM to follow. Plan: [facility], PT, RN, OT Date Signed: 12/08/2017 01:41 PM Electronically Signed By:RAMONE Swanson [facility] CM Progress Note CM Note CM Note Notes: Discussed pt case in rounds this AM. Attempted too meet w/pt at end of day but he was sleeping. DC plan has been to dc home w/[facility], although PT still recommending SNF. Not determined yet if pt will need LT IV ABX's but did give referral to [employer] to run benefits. Pt will have abd CT to assess liver abcesses. Pt also having knee pain. CM will meet w/pt tomorrow to discuss dc poc options. Date Signed: 12/11/2017 05:14 PM Electronically Signed By:Yamileth Andrea RN [facility] CM Progress Note CM Note CM Note Notes: Spoke w/NERI, pt will dc home w/ [employer] for IV abx. Flavia tatiana [facility] was here to meet with pt to discuss insurance coverage. DC Plan: [employer] Date Signed: 12/13/2017 06:37 PM Electronically Signed By:Maggie Matias RN [facility] CM Progress Note CM Note CM Note Notes: Spoke w/, patient may not want to do home infusion. Per Dr. Moise, he can adjust his infusion to once a day and pt can come to outpt infusion. Patient will be here through the weekend, he needs to have an abcess drained, CM will continue to follow. DC Plan: TBD Date Signed: 12/14/2017 03:10 PM Electronically Signed By:Maggie Matias RN [facility] CM Progress Note CM Note CM Note Notes: Plan remains the same, pt stephanie dc Mon/Mon. Pt to decided if he wants to dc independent and come to outpt infusion or dc w/[facility] for home infusion. DC Plan: Home infusion vs Outpatient Date Signed: 12/16/2017 03:52 PM Electronically Signed By:Maggie Bredehoeft, RN Case Management Discharge Plan Note Case Management Discharge Discharge Order Complete? Answers: Yes Patient to Obtain Answers: Independently Medications Transportation Arranged Answers: Family/Friends EMTALA Complete Answers: No Case Management Transport Answers: No Form Complete Faxed Final Orders Answers: Yes Agency/Facility Transfer Answers: Yes Report Printed & Faxed to Receiving Agency Family Notified Answers: Yes Discharge Comments Notes: spoke w/ Nanette Samaniego NP, Dr. Moise and NERI Pineda regarding d/c POC. CM met w/ pt and son in law for dispo planning. Pt is being discharged today. Pt is agreeable for CM to make pt a new PCP appointment. CM obtained a new PCP appointment with Dr. Berrios on 12/22 @ 12:45PM. CM inputted the appointment into [employer]. Pt also requested a list of primary care physicians through the [facility] network. CM provided pt w/ a copy all outpatient providers through [facility]. CM sent d/c orders to Tom. CM provided NERI Pineda w/ phone number to give report to [facility]. CM available for changes. Plan: Tom and IRENE, RN and OT Date Signed: 12/18/2017 02:21 PM Electronically Signed By:RAMONE Swanson Intervention Information
== END 2017-12-18 17:11 | disposition home health service (06) | DRG 442 ==
LOC: F2W 08:30 → OBSVTOIN 18:00 → F3E 12-12 18:47
PROVIDERS: ADMIT Family Medicine; ATTEND Internal Medicine
DX: K75.0 Abscess of liver (principal); I82.401 Acute embolism and thrombosis of unspecified deep veins of right lower extremity; K56.7 Ileus, unspecified; B96.89 Other specified bacterial agents as the cause of diseases classified elsewhere; M25.561 Pain in right knee; R09.02 Hypoxemia; D72.829 Elevated white blood cell count, unspecified; G44.009 Cluster headache syndrome, unspecified, not intractable; R94.31 Abnormal electrocardiogram [ECG] [EKG]; K59.00 Constipation, unspecified; E78.5 Hyperlipidemia, unspecified; Z23 Encounter for immunization
CPT/HCPCS: 96374; 97116-GP; 97162-GP; 97165-GO; 97530-GO; 97530-GP; 97535-GO; A9585; C1751; G0008; J0295; J0696; J1170; J1335; J1650; J1885; J2060; J2250; J2310; J2405; J2543; J2550; J2765; J2997; J3010; Q9967

== ENCOUNTER → 2018-01-12 | Outpatient (CLI) | payer OTHER ==
[~2018-01-12] MED LIST: IOPAMIDOL (ISOVUE-300) 100 ML BTL ONE
== END ==
LOC: FIMAGING 14:18
PROVIDERS: ATTEND Internal Medicine Infectious Disease
DX: K76.9 Liver disease, unspecified (principal); Z79.2 Long term (current) use of antibiotics
CPT/HCPCS: Q9967

== ENCOUNTER 2018-01-13 09:46 | Emergency (ER) | payer OTHER ==
[2018-01-13] MEDS ORDERED: HYDROmorphONE/DILAUDID 1 MG/ML INJ IVP ONE (10:21)
[2018-01-13 10:23] LABS: PLATELET COUNT 242 10^3/uL (150-400)
--- NOTE | 2018-01-13 10:25 | EDPHY ---
H & P Smoking Status: Never smoked Time Seen by Provider: 01/13/18 09:57 HPI/ROS: CHIEF COMPLAINT: Right knee pain, swelling, leg pain HISTORY OF PRESENT ILLNESS: 62-year-old male presents to the emergency department with pain in his right knee and calf. The patient was diagnosed with a DVT 3 weeks ago and was initially on Xarelto and then was Bridge for 3 days with Coumadin and now has been on Coumadin for the last 1 week. He had INR a few days ago of 1. The patient states that he was on his feet a lot yesterday. He states that he had some pain in the posterior aspect of his right knee yesterday however this has become increasingly worse. He denies chest pain or shortness of breath. Denies pleuritic chest pain specifically. The patient is currently undergoing treatment for liver abscess. He is receiving IV Invanz through a PICC line. No fevers or chills. No pain in his groin. No abdominal pain. REVIEW OF SYSTEMS: Constitutional: No fever, no chills. Eyes: No double or blurry vision. ENT: No sore throat. Respiratory: No cough, no shortness of breath. Cardiac: No chest pain. Gastrointestinal: No abdominal pain, vomiting or diarrhea. Genitourinary: No dysuria. Musculoskeletal: Right knee pain as above. No neck or back pain. Skin: No rashes. Neurological: No headache. (Lauren Torres) Past Medical/Surgical History: Liver abscess currently undergoing IV Invanz through a PICC line, DVT right leg 3 weeks ago, cluster headaches (Lauren Torres M) Social History: and lives in [place] (Lauren Torres) Physical Exam: General Appearance: Alert, no distress. Afebrile. 128/90, 97% on room air. Eyes: Pupils equal and round. Extraocular motions are all intact. ENT: Mouth: Mucous membranes moist. Respiratory: No wheezing, rhonchi, or rales, lungs are clear to auscultation. Cardiovascular: Regular rate and rhythm. Gastrointestinal: Abdomen is soft and nontender, no masses, no rebound or guarding, bowel sounds normal. Neurological: Alert and oriented x 3, cranial nerves II through XII grossly intact Skin: Warm and dry, no rashes. Musculoskeletal: Nontender to palpate along the cervical, thoracic or lumbar spine. Neck is supple. Extremities: Right knee reveals swelling to the superior aspect of the right knee. He has tenderness with palpation especially in the medial joint line as well as in the posterior medial aspect of the right knee. There is no redness or warmth. No signs of infection. He has no pain with small, passive range of motion of the right knee. Unable to flex the right knee to 90 degrees secondary to pain. His right calf is slightly swollen and nontender. Psychiatric: Patient is oriented X 3, there is no agitation. (Lauren Torres) Constitutional: Initial Vital Signs Temperature (C) 36.7 C 01/13/18 09:49 Heart Rate 88 01/13/18 09:49 Respiratory Rate 18 01/13/18 09:49 Blood Pressure 128/90 H 01/13/18 09:49 O2 Sat (%) 97 01/13/18 09:49 O2 Delivery Mode Room Air Allergies/Adverse Reactions: No Known Allergies Allergy (Verified 01/13/18 09:48) Home Medications: Medication Instructions Recorded oxyCODONE IR [Oxycodone Ir (*)] 5 - 10 mg PO Q3 PRN #30 tab 12/18/17 Enoxaparin [Lovenox 100 MG (*)] 100 mg SQ Q12H #10 syr 01/13/18 Ertapenem [Invanz] 1 gm IV DAILY 01/13/18 Warfarin Sodium [Coumadin 2.5MG 2.5 mg PO MOTUWEFRSA 01/13/18 (*)] Warfarin Sodium [Coumadin 5MG (*)] 5 mg PO DAILY #10 tab 01/13/18 Warfarin Sodium [Coumadin 5MG (*)] 5 mg PO SUTH 01/13/18 oxyCODONE/APAP 5/325 [Percocet 1 - 2 tab PO Q4-6PRN PRN #15 tab 01/13/18 5/325] Medical Decision Making - Diagnostics Imaging: Discussed imaging studies w/ banquet server on call Radiologist - Diagnostics Imaging Results: Imaging Impressions Extremity Venous Study 01/13/18 10:20 Impression: Positive deep venous thrombosis of the right calf peroneal veins, possibly minimally progressed since December 08, 2017. Findings and recommendations discussed with emergency department physician professional nursing assistant, Lauren Torres at 1135 hours on January 13, 2018. Final report concurs with initial preliminary interpretation. ED Course/Re-evaluation: I also saw the patient in the emergency department at 12:25 p.m.. I reviewed the history of his DVT. Reviewed his labs and that his INR is essentially normal. The patient's knee is examined and is quite tender especially posteriorly. There is moderate effusion present. Does not appear to be infected. The patient and I discussed treatment plan including need for Lovenox. I have recommended admission. He would like to try to go home however pain control is inadequate at this point despite IV Dilaudid. He will be given oral oxycodone in the emergency department so he may see what pain control will be like if he goes home. (Gwyn Newton) 62-year-old male presents to the emergency department with right knee pain. Clinically I would do not see any signs of cellulitis or infection. He does have swelling in his right leg. He does have a history of a DVT 3 weeks ago in the same leg and is currently on Coumadin. INR is pending. Right lower extremity ultrasound is also pending. Ultrasound reveals persisting DVT in the right lower extremity with some new clot in the collateral veins in the calf. It does not extend into the popliteal veins or femoral veins. The patient was also seen examined by Dr. Gwyn Newton. I doubt septic arthritis. I do not think patient needs aspiration of his right knee joint. His pain is in the popliteal as well as posterior medial aspect of his right knee. He does have evidence of persisting DVT and his INR is 1.07. The patient was started on Lovenox in the emergency department given a teaching kit for this. He is also given 5 mg of Coumadin p.o.. I offered admission to the hospital because of the pain in his right knee and leg, however the patient declined. He was given oral Percocet and initially was given 0.5 mg of IV Dilaudid. The patient was able to ambulate using crutches. Again he would like to be discharged home. He was instructed to return to the emergency department if he felt short of breath, if he developed pain in his chest, specifically pleuritic chest pain, or if he felt worse in any way. (Lauren Torres) Differential Diagnosis: Including but not limited to hemarthrosis, DVT, pulmonary embolism, septic arthritis, gout, knee sprain (Lauren Torres) - Data Points Laboratory Results: Laboratory Results 01/13/18 10:10 01/13/18 01/13/18 10:10 10:10 WBC 7.40 10^3/uL 10^3/uL (3.80-9.50) RBC 4.71 10^6/uL 10^6/uL (4.40-6.38) Hgb 14.0 g/dL g/dL (13.7-17.5) Hct 41.6 % % (40.0-51.0) MCV 88.3 fL fL (81.5-99.8) MCH 29.7 pg pg (27.9-34.1) MCHC 33.7 g/dL g/dL (32.4-36.7) RDW 15.4 % H % (11.5-15.2) Plt Count 242 10^3/uL 10^3/uL (150-400) MPV 9.2 fL fL (8.7-11.7) Neut % (Auto) 57.8 % % (39.3-74.2) Lymph % (Auto) 30.1 % % (15.0-45.0) [place] % (Auto) 7.0 % % (4.5-13.0) Eos % (Auto) 4.1 % % (0.6-7.6) Baso % (Auto) 0.9 % % (0.3-1.7) Nucleat RBC Rel Count 0.0 % % (0.0-0.2) Absolute Neuts (auto) 4.27 10^3/uL 10^3/uL (1.70-6.50) Absolute Lymphs (auto) 2.23 10^3/uL 10^3/uL (1.00-3.00) Absolute Monos (auto) 0.52 10^3/uL 10^3/uL (0.30-0.80) Absolute Eos (auto) 0.30 10^3/uL 10^3/uL (0.03-0.40) Absolute Basos (auto) 0.07 10^3/uL 10^3/uL (0.02-0.10) Absolute Nucleated RBC 0.00 10^3/uL 10^3/uL (0-0.01) Immature Gran % 0.1 % % (0.0-1.1) Immature Gran # 0.01 10^3/uL 10^3/uL (0.00-0.10) PT 14.1 SEC SEC (12.0-15.0) INR 1.07 (0.83-1.16) Medications Given: Discontinued Medications Enoxaparin Sodium (Lovenox) 100 mg SC EDNOW ONE Stop: 01/13/18 13:16 Last Admin: 01/13/18 14:11 Dose: 100 mg Hydromorphone HCl (Dilaudid) 0.5 mg IVP EDNOW ONE Stop: 01/13/18 10:22 Last Admin: 01/13/18 10:29 Dose: 0.5 mg Oxycodone/Acetaminophen (Percocet 5/325) 1 tab PO EDNOW ONE Stop: 01/13/18 12:36 Last Admin: 01/13/18 12:40 Dose: 1 tab Warfarin Sodium (Coumadin) 5 mg PO EDNOW ONE Stop: 01/13/18 14:27 Last Admin: 01/13/18 14:37 Dose: 5 mg Departure - Departure Disposition: Home, Routine, Self-Care Clinical Impression: Right leg DVT Qualifiers: Affected thrombotic vein of extremity: unspecified vein of extremity Chronicity : acute Qualified Code(s): I82.401 - Acute embolism and thrombosis of unspecified deep veins of right lower extremity Condition: Good Instructions: Deep Vein Thrombosis (ED) Additional Instructions: Lovenox twice daily. Coumadin 5 mg daily. Follow up with your primary care provider on Monday to recheck. Return to the emergency department if you feel short of breath, if he developed pain in your chest specifically with deep breathing, if you develop increased pain or swelling in your right leg or knee, or if you feel worse in any way. Referrals: Zach Timmons, DO [Primary Care Provider] - 1-2 days without fail Prescriptions: Enoxaparin [Lovenox 100 MG (*)] 100 mg SQ Q12H #10 syr oxyCODONE/APAP 5/325 [Percocet 5/325] 1 - 2 tab PO Q4-6PRN PRN #15 tab PRN Reason: For Moderate To Severe Pain Warfarin Sodium [Coumadin 5MG (*)] 5 mg PO DAILY #10 tab
[2018-01-13] MEDS ORDERED: HYDROmorphONE/DILAUDID 2 MG/ML INJ ONE (10:28)
[2018-01-13 10:32] LABS: INR 1.07 (0.83-1.16); PROTIME(PATIENT) 14.1 SEC (12.0-15.0)
[2018-01-13] MEDS ORDERED: OXYCODONE/APAP 5/325 TAB PO ONE (12:35)
[2018-01-13] MEDS ORDERED: ENOXAPARIN 100 MG/ML SYR SC ONE (13:15)
[2018-01-13] MEDS ORDERED: WARFARIN SODIUM 5 MG TAB PO ONE (14:26)
[2018-01-13 15:52] VITALS: BP 106/70
== END 2018-01-13 15:51 | disposition home or self-care (01) ==
DX: I82.401 Acute embolism and thrombosis of unspecified deep veins of right lower extremity (principal); Z79.01 Long term (current) use of anticoagulants
CPT/HCPCS: 96374; J1170; J1650

== ENCOUNTER → 2018-02-09 | Outpatient (CLI) | payer OTHER | LOC: FIMAGING 08:19 | PROVIDERS: ATTEND Internal Medicine Infectious Disease | DX: Z09 Encounter for follow-up examination after completed treatment for conditions other than malignant neoplasm (principal); K75.0 Abscess of liver; Z79.2 Long term (current) use of antibiotics | CPT/HCPCS: Q9967 ==

== ENCOUNTER → 2018-03-21 | Outpatient (CLI) | payer OTHER | LOC: FIMAGING 14:21 | PROVIDERS: ATTEND Family Medicine | DX: Z86.718 Personal history of other venous thrombosis and embolism (principal); M79.661 Pain in right lower leg; Z79.01 Long term (current) use of anticoagulants ==